=== PATIENT | female | born 1955 | race Caucasian/White ===

== ENCOUNTER → 2019-08-15 09:25 | Outpatient (CLI) | payer MEDICARE, OTHER, SELFPAY ==
--- NOTE | ~2019-08-15 | DEXA_ITS ---
Bone Density Report Name: Lyly Townsend Age: 64 Sex: Female Ethnicity: White Date of : 1955 Indication: postmenopausal osteoporosis; history of glucocorticoids; Referring Provider: NEFTALI MCWILLIAMS D.O. Study: Bone densitometry was performed. Exam Date: August 15, 2019 Accession number: [id number] Bone Density: Region BMD T-score Z-score Classification AP Spine (L1-L4) 1.004 -0.4 1.2 Normal Femoral Neck (Left) 0.536 -2.8 -1.4 Osteoporosis Total Hip (Left) 0.664 -2.3 -1.2 Osteopenia Femoral Neck (Right) 0.454 -3.6 -2.1 Osteoporosis Total Hip (Right) 0.568 -3.1 -1.9 Osteoporosis Total Hip Mean 0.616 -2.7 -1.6 Osteoporosis World Health Organization criteria for BMD impression classify patients as: Normal (T-score at or above -1.0), Osteopenia (T-score between -1.0 and -2.5), or Osteoporosis (T-score at or below -2.5). 10-year Fracture Risk: FRAX not reported because: Some T-score for Spine Total or Hip Total or Femoral Neck at or below -2.5 Previous Exams: Region Exam Age BMD T-score BMD Change BMD Change Date g/cm2 vs Baseline vs Previous AP Spine(L1-L4) 08/15/2019 64 1.004 -0.4 0.051 0.051 01/21/2015 59 0.953 -0.9 Total Hip(Left) 08/15/2019 64 0.664 -2.3 -0.015 -0.015 01/21/2015 59 0.680 -2.2 Total Hip(Right) 08/15/2019 64 0.568 -3.1 -0.058 -0.058 01/21/2015 59 0.625 -2.6 *Denotes significance at 95% confidence level, LSC for AP Spine = 0.022 g/cm2, LSC for Total Hip = 0.027 g/cm2 Clinical Information Provided by Patient: Has taken Glucocorticoids Has used the following medications: Vitamin D Patient maximum height was 62.5 Menopause Age: 53 No regular weight bearing exercise Drinks caffeinated beverages Onset of menses at age 10 Number of children 0 Impression: The patient has osteoporosis, based on the Right Femoral Neck T-score. The patient has risk factors, including: history of glucocorticoid therapy. No significant bone loss was observed. Discussion: HIGH RISK OF FRACTURE. BONE DENSITY IS UNDESIRABLY LOW AT ONE OR MORE SKELETAL SITES, CONSISTENT WITH OSTEOPOROSIS. ALSO, BONE DENSITY IS LOWER THAN EXPECTED FOR AGE AND SEX AT ONE OR MORE SKELETAL SITES; RECOMMEND A DILIGENT SEARCH FOR SECONDARY CAUSES OF BONE LOSS. This patient's lowest T-score meets the World Health Organization's (WHO) criteria for osteoporosis at one or more sites (T-score -2.5 or below).
== END ==
PROVIDERS: Visit Provider Internal Medicine
DX: M81.0 Age-related osteoporosis without current pathological fracture (principal); M85.852 Other specified disorders of bone density and structure, left thigh
CPT/HCPCS: 77080

== ENCOUNTER → 2021-01-28 15:49 | Outpatient (CLI) | payer MEDICARE, OTHER, SELFPAY ==
--- NOTE | ~2021-01-28 | MM_ITS ---
EXAMINATION: MM screening allie BI w cherelle HISTORY: Screening mammogram TECHNIQUE: Craniocaudal and mediolateral oblique 3-D tomosynthesis images were obtained and synthetic 2-D images were generated. CAD analysis was submitted and interpreted. COMPARISON: No prior mammogram is available for comparison at this institution. BREAST PARENCHYMAL COMPOSITION: There are scattered areas of fibroglandular density. FINDINGS: There is no evidence of suspicious mass, calcification, or architectural distortion to sugg est malignancy in either breast. There has been no suspicious interval change. IMPRESSION: 1. No mammographic evidence of malignancy. 2. Recommend routine screening mammography in one year. BI-RADS Category 1: Negative Reviewed, dictated and finalized at location A.
== END ==
PROVIDERS: PCP Internal Medicine; Visit Provider Internal Medicine
DX: Z12.31 Encounter for screening mammogram for malignant neoplasm of breast (principal)
CPT/HCPCS: 77063; 77067

== ENCOUNTER → 2021-02-03 14:45 | Outpatient (CLI) | payer MEDICARE, OTHER, SELFPAY ==
--- NOTE | ~2021-02-03 | XR_ITS ---
XR chest 2V DATE: 02/03/2021 15:50 INDICATION: Mastodynia TECHNIQUE: PA and lateral views COMPARISON: 12/01/2016 two-view chest FINDINGS: Status post lower cervical spine anterior surgical fusion. Diffuse osteopenia. Bilateral hyperinflation and relative flattening the diaphragm suggest COPD. No pulmonary infiltrate or consolidation, pleural effusion or pulmonary vascular congestion or pneumothorax. Normal heart size. No hilar or mediastinal enlargement. There is chronic elevation of the left hilum suggesting chronic upper lobe volume loss on the left. IMPRESSION: Bilateral hyperinflation; no interval active disease since 12/01/2016 Chronic mild left upper lobe volume loss Reviewed, dictated and finalized at location B. IMPRESSION: Bilateral hyperinflation; no interval active disease since 7 Chronic mild left upper lobe volume loss
== END ==
PROVIDERS: PCP Internal Medicine; Visit Provider Internal Medicine
DX: N64.4 Mastodynia (principal); R91.8 Other nonspecific abnormal finding of lung field
CPT/HCPCS: 71046

== ENCOUNTER 2021-03-11 11:32 | Outpatient (CLI) | payer MEDICARE, OTHER, SELFPAY ==
--- NOTE | ~2021-03-11 | MMUS_ITS ---
EXAMINATION: MM diagnostic allie LT w cherelle, US breast LT complete HISTORY: Lateral left breast pain TECHNIQUE: ML, MLO, craniocaudal full field and spot 3-D tomosynthesis images of the left breast were performed and synthetic 2-D images were generated. CAD analysis was submitted and interpreted. High resolution complete left breast and left axillary ultrasound was performed. COMPARISON: 01/28/2021, 07/20/2016 bilateral digital screening mammogram examinations BREAST PARENCHYMAL COMPOSITION: There are scattered areas of fibroglandular density. FINDINGS: MAMMOGRAPHIC FINDINGS: There is an approximately 5.5 mm circumscribed opacity in the posterior aspect of the upper outer lef t breast, likely intramammary lymph node. Another approximately 5.4 mm circumscribed probable lymph node is noted in the left axilla. No suspicious mass or architectural distortion is evident. No malignant calcification, skin thickenin g or retraction. ULTRASOUND: 6.1 x 3.8 x 4.6 millimeters lymph node is noted in the left axillary area at 2:00 10 cm from the nipp le. The cortex appears relatively uniform in thickness and echogenicity. No left breast suspicious mass or shadowing is detected. IMPRESSION: 1. No mammographic evidence of malignancy 2. Routine mammographic screening is recommended. BI-RADS Category 2: Benign finding(s). Reviewed, dictated and finalized at location A. IMPRESSION: 1. No mammographic evidence of malignancy 2. Routine mammographic screening is recommended. BI-RADS Category 2: Benign finding(s).
== END 2021-03-11 11:33 | disposition home or self-care (01) ==
PROVIDERS: PCP Internal Medicine; Visit Provider Internal Medicine
DX: R92.8 Other abnormal and inconclusive findings on diagnostic imaging of breast (principal); N64.4 Mastodynia
CPT/HCPCS: 76641; 77061; 77065; G0279

== ENCOUNTER 2021-04-04 09:08 | Outpatient (CLI) | payer MEDICARE, OTHER, SELFPAY ==
--- NOTE | 2021-04-04 09:23 | EST_ITS ---
Patient Info Name: Lyly Townsend Age: 65 years : 1955 Gender: Female Ht: 62 in Wt: 106 lbs BSA: 1.45 m2 HR: 68 bpm BP: 184 / 68 mmHg Heart Rhythm: Sinus Rhythm Exam Date: 04/04/2021 9:54 AM Exam Location: [facility] Patient Status: Outpatient Admit Date: 04/04/2021 Staff Ordering Physician: Tien Pascal DO Attending Provider: Tien Pascal DO Exercise Technologist: Tierra [place] CT Exercise Physician: Derik Melissa DO Exam Type: CA stress echo Study Info Indications R07.89 - Other chest pain Treadmill exercise stress echocardiogram is performed. Summary 1. 1. Negative Dilshad exercise stress test for ischemic ST changes by ECG criteria. 2. 2. Poor functional capacity, achieving 4 METs of workload. 3. 3. Baseline hypertension with hypertensive response to exercise. 4. 4. Appropriate HR response to exercise. 5. 5. Appropriate HR recovery at 1 minute post exercise. 6. 6. Negative stress echocardiogram for ischemia by wall motion analysis. 7. 7. Patient informed of the above results. Stress Echo Findings Left Ventricle Appropriate increase in LV endocardial thickening with systole. Appropriage augmentation of contractility with systole. No wall motion abnormality. Left Ventricle Normal LV systolic function, no wall motion abnormality. Protocol: Dilshad Stress ECG Details Stage: REST Duration (min): 31 min : 20 sec Speed (mph): 0.0 Grade (%): 0 HR (bpm): 73 SBP (mmHg): 184 DBP (mmHg): 68 METS: --- Stage: REST Duration (min): 32 min : 58 sec Speed (mph): 0.0 Grade (%): 0 HR (bpm): 73 SBP (mmHg): 184 DBP (mmHg): 68 METS: --- Stage: STAGE 1 Duration (min): 1 min : 0 sec Speed (mph): 1.7 Grade (%): 10 HR (bpm): 121 SBP (mmHg): 184 DBP (mmHg): 68 METS: --- Stage: STAGE 1 Duration (min): 2 min : 0 sec Speed (mph): 1.7 Grade (%): 10 HR (bpm): 136 SBP (mmHg): 184 DBP (mmHg): 68 METS: --- Stage: STAGE 1 Duration (min): 2 min : 32 sec Speed (mph): 0.0 Grade (%): 0 HR (bpm): 137 SBP (mmHg): 184 DBP (mmHg): 68 METS: --- Stage: RECOVERY Duration (min): 0 min : 27 sec Speed (mph): 0.0 Grade (%): 0 HR (bpm): 126 SBP (mmHg): 213 DBP (mmHg): 133 METS: --- Stage: RECOVERY Duration (min): 1 min : 27 sec Speed (mph): 0.0 Grade (%): 0 HR (bpm): 92 SBP (mmHg): 213 DBP (mmHg): 133 METS: --- Stage: RECOVERY Duration (min): 2 min : 27 sec Speed (mph): 0.0 Grade (%): 0 HR (bpm): 78 SBP (mmHg): 213 DBP (mmHg): 133 METS: --- Stage: RECOVERY Duration (min): 3 min : 13 sec Speed (mph): 0.0 Grade (%): 0 HR (bpm): 75 SBP (mmHg): 182 DBP (mmHg): 92 METS: --- Rest HR: 73 bpm Peak HR: 138 bpm Rest Sys BP: 184 mmHg Peak Sys BP: 213 mmHg Max Pred HR: 156 bpm % Max Pred HR: 88 % Target HR: 133 bpm Max RPP: 29,394 bpm*mmHg Mont[place] Oca Score: -7 BP Response: Patient exhibited a hypertensive response
== END 2021-04-04 09:09 | disposition home or self-care (01) ==
PROVIDERS: PCP Internal Medicine; Visit Provider Internal Medicine
DX: R07.9 Chest pain, unspecified (principal)
CPT/HCPCS: 93351

== ENCOUNTER → 2021-07-28 08:50 | Outpatient (CLI) | payer MEDICARE, SELFPAY ==
[2021-07-28 13:53] LABS: Influenza A QL RT-PCR Negative (Negative); Influenza B QL RT-PCR Negative (Negative); SARS-CoV-2 RNA PCR Negative
== END ==
PROVIDERS: PCP Internal Medicine; Visit Provider Internal Medicine
DX: R68.89 Other general symptoms and signs (principal); Z20.822 Contact with and (suspected) exposure to COVID-19
CPT/HCPCS: 87502; C9803; U0003; U0005

== ENCOUNTER 2021-07-28 12:04 | Outpatient (CLI) | payer MEDICARE, SELFPAY ==
[2021-07-28 12:47] LABS: Add Urine Microscopic? YES; Appearance Urine Clear (Clear); Bilirubin Urine Negative (Negative); Blood Urine Negative (Negative); Color Urine Amber (Yellow); Glucose Urine UA Negative (Negative); Ketones Urine Trace mg/dL (Negative); Leukocyte Esterase Ur Negative LEU/UL (Negative); Mucus Urine Rare /lpf; Nitrate Urine Positive (Negative); Protein Urine Negative (Negative); RBC Urine 0-2 /hpf (0-2); Specific Grav Ur 1.005 (1.001-1.035); Squamous Epithelial Cell Urine Few /hpf (Few); WBC Urine 0-3 /hpf
== END 2021-07-28 12:05 | disposition home or self-care (01) ==
PROVIDERS: PCP Internal Medicine; Visit Provider Internal Medicine
DX: R30.0 Dysuria (principal)
CPT/HCPCS: 81001; 87502; C9803; U0003; U0005

== ENCOUNTER 2021-08-12 10:03 | Outpatient (CLI) | payer MEDICARE, SELFPAY ==
--- NOTE | ~2021-08-12 | XR_ITS ---
XR chest 2V DATE: 08/12/2021 10:13 INDICATION: Intermittent fever for 6 weeks. Cough, shortness of breath. TECHNIQUE: PA and lateral views COMPARISON: 02/03/2021 2 view chest FINDINGS: Status post anterior cervical spine surgical fusion. Bilateral hyperinflation. No pulmonary infiltrate or consolidation, pleural effusion or pulmonary vas cular congestion or pneumothorax. IMPRESSION: Bilateral hyperinflation; no active cardiopulmonary disease Reviewed, dictated and finalized at location A. L POLISHER AND BUFFER APPRENTICE
[2021-08-12 10:26] LABS: CRP 2.3 mg/dL (<1.0); Lactate Dehydrogenase 421 U/L (313-618)
[2021-08-12 10:33] LABS: Rheumatoid Factor < 8.6 IU/ML (<12)
== END 2021-08-12 10:04 | disposition home or self-care (01) ==
PROVIDERS: PCP Internal Medicine; Visit Provider Internal Medicine
DX: R50.9 Fever, unspecified (principal)
CPT/HCPCS: 36415; 71046; 83615; 86140; 86430; 87086; 87088

== ENCOUNTER → 2022-02-05 11:25 | Outpatient (CLI) | payer MEDICARE, SELFPAY ==
--- NOTE | ~2022-02-05 | XR_ITS ---
XR foot LT min 3V DATE: 02/05/2022 11:51 INDICATION: Left foot pain TECHNIQUE: 4 views COMPARISON: None FINDINGS: There is diffuse osteopenia. No fracture or dislocation, periosteal reaction or bone destruction. No erosive change. IMPRESSION: Osteopenia Reviewed, dictated and finalized at location B. IMPRESSION: Osteopenia
== END ==
PROVIDERS: PCP Internal Medicine; Visit Provider Internal Medicine
DX: M85.872 Other specified disorders of bone density and structure, left ankle and foot (principal)
CPT/HCPCS: 73630

== ENCOUNTER 2023-06-21 08:47 | Outpatient (CLI) | payer MEDICARE, SELFPAY ==
--- NOTE | ~2023-06-21 | DEXA_ITS ---
Bone Density Report Name: DAXA TABOR Age: 68 Sex: Female Ethnicity: White Date of : 1955 Indication: postmenopausal; screening for osteoporosis; Referring Provider: STEPHENIE SHELDON Study: Bone densitometry was performed. Exam Date: June 21, 2023 Accession number: [id number] Bone Density: Region BMD T-score Z-score Classification AP Spine(L1-L4) 1.019 -0.3 1.7 Normal Femoral Neck (Left) 0.558 -2.6 -1.0 Osteoporosis Total Hip (Left) 0.648 -2.4 -1.1 Osteopenia Femoral Neck (Right) 0.525 -2.9 -1.3 Osteoporosis Total Hip (Right) 0.618 -2.7 -1.3 Osteoporosis Total Hip Mean 0.633 -2.6 -1.2 Osteoporosis World Health Organization criteria for BMD impression classify patients as: Normal (T-score at or above -1.0), Osteopenia (T-score between -1.0 and -2.5), or Osteoporosis (T-score at or below -2.5). 10-year Fracture Risk: FRAX not reported because: Some T-score for Spine Total or Hip Total or Femoral Neck at or below -2.5 Clinical Information Provided by Patient: Has used the following medications: Vitamin D, Calcium Patient maximum height was 62 Menopause Age: 53 No regular weight bearing exercise Does not regularly consume dairy products Drinks caffeinated beverages Onset of menses at age 9 Number of children 0 Impression: The patient has osteoporosis, based on the Right Femoral Neck T-score. Discussion: INCREASED RISK OF FRACTURE. BONE DENSITY IS UNDESIRABLY LOW AT ONE OR MORE SKELETAL SITES, CONSISTENT WITH POSTMENOPAUSAL OSTEOPOROSIS. This patient's lowest T-score meets the World Health Organization's (WHO) criteria for osteoporosis at one or more sites (T-score -2.5 or below). In untreated patients, the risk of osteoporotic fracture increases approximately two-fold for each 1.0 SD decrease in T-score. Low bone density is not the only risk factor for fracture; also consider factors such as patient's age, frailty or poor health, risk of falling, risk of injury, previous osteoporotic fracture, family history of osteoporosis, cigarette smoking, low body weight, etc. Not everyone with low bone mineral density has osteoporosis; osteomalacia and other metabolic bone disorders should also be considered. Patients who have osteoporosis should be evaluated for specific diseases and conditions (secondary causes) that may cause or contribute to bone loss. The [place] Association [employer] Clinical Endocrinologists (AACE) and National Osteoporosis Foundation (NOF) recommend pharmacologic intervention for all postmenopausal women whose T-score is in this range. The patient should follow a healthful lifestyle (good nutrition with adequate calcium and vitamin D, and appropriate weight-bearing exercise). Follow-Up: Consider a repeat BMD and Vertebral Fracture Assessment (VFA) exam in 2 years or sooner if medi
== END 2023-06-21 08:48 | disposition home or self-care (01) ==
LOC: ANHIMG 08:48
PROVIDERS: PCP Nurse Practitioner Family; Visit Provider Nurse Practitioner Family
DX: M81.0 Age-related osteoporosis without current pathological fracture (principal); Z78.0 Asymptomatic menopausal state; Z13.820 Encounter for screening for osteoporosis
CPT/HCPCS: 77080

== ENCOUNTER 2024-02-29 11:41 | Outpatient (CLI) | payer MEDICARE, SELFPAY ==
--- NOTE | ~2024-02-29 | CT_ITS ---
EXAMINATION: CT sinus wo con DATE: 02/29/2024 11:54 INDICATION: Chronic sinusitis. TECHNIQUE: Computed tomography (CT) of the paranasal sinuses was performed without intravenous contra st. Iterative reconstruction technique was employed. The dose-length product was 290.62 mGy-cm. COMPARISON: CT sinuses 11/25/2016 FINDINGS: The frontal , ethmoid, sphenoid, and maxillary sinuses are clear. There is leftward deviati on of the nasal septum. There is cedric bullosa involving left middle turbinate. The middle turbinate s are partially paradoxical. The ostiomeatal units are patent. IMPRESSION: 1. Leftward deviation of the nasal septum. Reviewed, dictated and finalized at location A.
== END 2024-02-29 11:42 ==
LOC: MICIMG 11:41
DX: J34.2 Deviated nasal septum (principal); J32.9 Chronic sinusitis, unspecified
CPT/HCPCS: 70486

== ENCOUNTER 2024-03-15 12:01 | Outpatient (CLI) | payer MEDICARE, SELFPAY ==
[2024-03-15 13:27] LABS: Influenza A QL RT-PCR Negative (Negative); Influenza B QL RT-PCR Negative (Negative); RSV RNA, RT-PCR Negative (Negative); SARS-CoV-2 RNA PCR Positive (Negative)
== END 2024-03-15 12:02 | disposition home or self-care (01) ==
LOC: ANHLAB 12:03
PROVIDERS: PCP Nurse Practitioner Family; Visit Provider Nurse Practitioner Family
DX: R50.9 Fever, unspecified (principal); Z20.822 Contact with and (suspected) exposure to COVID-19
CPT/HCPCS: 87637

== ENCOUNTER 2024-03-22 10:19 | Outpatient (CLI) | payer MEDICARE, SELFPAY ==
--- NOTE | ~2024-03-22 | XR_ITS ---
EXAMINATION: XR chest 2V DATE: 03/22/2024 10:42 INDICATION: Shortness of breath. Chest tightness. TECHNIQUE: Frontal and lateral views of the chest were obtained. COMPARISON: Chest 2 views 08/12/2021 FINDINGS: There is mild scarring at the lung apices. There is no pneumonia, pleural effusion, or pneu mothorax. There are changes of anterior fusion procedure in cervical spine. There is mild chronic ant erior wedging of multiple mid thoracic vertebral bodies. IMPRESSION: 1. Stable mild scarring at the lung apices. Reviewed, dictated and finalized at location A.
== END 2024-03-22 10:20 | disposition home or self-care (01) ==
LOC: ANHIMG 10:25
PROVIDERS: PCP Nurse Practitioner Family; Visit Provider Nurse Practitioner Family
DX: R06.02 Shortness of breath (principal)
CPT/HCPCS: 71046

== ENCOUNTER 2024-09-11 10:57 | Outpatient (CLI) | payer MEDICARE, SELFPAY ==
--- NOTE | 2024-09-11 11:09 | ECG_ITS ---
Test Date: 2024-09-11 11:20:18 Measurements Intervals [place] Rate: 57 P: 58 NC: 161 QRS: 42 QRSD: 90 T: 14 QT: 387 QTc: 377 Interpretive Statements SINUS BRADYCARDIA No previous ECG available for comparison Electronically Signed On 09-11-2024 11:54:04 CDT by Daniel Davis M.D.
--- OUTSIDE RECORDS SUMMARY | 2024-09-11 13:09 | XMS_ITS | Clinical Summary ---
Author Organization [facility] [employer] [facility] Address [address] [place] [address] Phone Care Team Providers Care Twitchell Operator Name Role Phone Paul Brooks ENVIRONMENTAL PROJECTS ADVISOR Unavailable [phone] Dilip Robledo MD Primary Care Provider [phone] Allergies Active Allergy Reactions Criticality Noted Date Comments Codeine Shortness of breath High 11/23/2017 Hydrocodone Shortness of breath High 11/23/2017 Sulfa (Sulfonamide Antibiotics) Rash Medium 10/03 Medications losartan (COZAAR) 50 mg tablet Take 1 tablet (50 mg total) by mouth daily Active omeprazole (PriLOSEC) 40 mg capsule Take 1 capsule (40 mg total) by mouth daily Active cholecalciferol (VITAMIN D-3) 5,000 unit tablet Active cyanocobalamin (Vitamin B-12) 1,000 mcg tabletIndicatio ns:Prevention of Vitamin B12 Deficiency Take 1 tablet (1,000 mcg total) by mouth daily Active diazePAM (VALIUM) 5 mg tablet TK 1/2 T PO QD PRN 0 Active needle, disp, 25 gauge (BD PrecisionGlide) 25 gauge x 1 needle USE ONE NEEDLE ONCE A WEEK WITH AVONEX INJECTION 6 each 12 0 Active albuterol HFA (PROVENTIL HFA,VENTOLIN HFA,PROAIR HFA) 90 mcg/actuation inhaler INHALE 1 PUFF BY MOUTH EVERY 6 HOURS NEEDED FOR SHORTNESS OF BREATH OR WHEEZING 3 Active zonisamide (ZONEGRAN) 25 mg capsule Take 1 capsule (25 mg total) by mouth daily 6caps per day 3 Active naproxen (ANAPROX DS) 550 mg tablet Take 1 Tablet prior to Avonex injection 30 tablet 2 4 Active gabapentin (NEURONTIN) 300 mg capsule TAKE 1 CAPSULE BY MOUTH TWICE DAILY 180 capsule 3 4 Active baclofen (LIORESAL) 10 mg tablet Take 1 tablet (10 mg total) by mouth 4 (four) times a day 360 tablet 3 4 06/20/20 25 Active interferon beta-1a (Avonex) 30 mcg/0.5 mL injection Inject 0.5 mL (30 mcg total) into the muscle as instructed every 7 days 1 kit 5 5 Active Active Problems Problem Noted Date Diagnosed Date Vitamin D deficiency 11/16/2017 Abnormal gait 07/08/2015 Multiple sclerosis 10/12/2006 Encounters Date Type Department Care Team Description 08/11/2024 Orders Only [facility] [address] [place] [phone] Mickey Turpin MD Multiple sclerosis ([facility]) (Primary Dx); Abnormal gait; Spasticity 07/25/2024 Orders Only [facility] [address] [facility] [address] [place] [address] Mickey Turpin MD Multiple sclerosis (HCC) (Primary Dx) 06/20/2024 11:00 AM [facility] Office Visit [facility] [address] [place] [phone] Mickey Turpin MD Multiple sclerosis ([facility]) (Primary Dx); High risk medication use from Last 3 Months Immunizations Immunization Administration Dates Next Due Influenza, Quadrivalent, Cristina l Culture-based MDCK, Preservative Free, Antibiotic Free, Intramuscular 04/02/2020,07/22/2017 Influenza, Quadrivalent, Rec ombinant, Egg Free, Preservative Free, Intramuscular 04/12/2018 Influenza, Quadrivalent, Spl it, Preservative Free, Intramuscular 04/13/2019 Pfizer SARS-CoV-2 Monovalent Vaccination (12+ Yrs) PURPLE 08/31/2020,08/09/2020 Pneumococcal Conjugate PCV 13 04/20/2018 ,04/19/2018,01/19/2017,01/19 Pneumococcal Polysaccharide PPV23 04/27/2019 Tetanus toxoid, adsorbed 02/24/2013,02/24/2013 ZOSTER Recombinant 01/02/2021 Surgical History Surgery Date Site/Laterality Comments CT LIG/TRNSXJ FLP TUBE ABDL/ VAG APPR UNI/BI Tubal Ligation - (Added by TW Conv) NECK SURGERY Neck Surgery - December 2007, ?C5/6 fusion (Added by TW Conv) Medical History Medical History Date Comments Personal history of other sp ecified conditions History of fatigue - (Added by TW Conv) Personal history of other di seases of the nervous system and sense organs History of optic neuri tis - (Added by TW Conv) Social History Tobacco Use Types Packs/Day Years Used Date Smoking Tobacco: Former Tobacco Cessation:Counseling Given: Not Answered Comments Unknown Sex and Gender Information Value Date Recorded Sex Assigned at Not on file Legal Sex Female 11:21 PM [facility]MAN Gender Identity Not on file Sexual Orientation Not on file Obstetrics History Last Filed Vital Signs Vital Sign Reading Time Taken Comments Blood Pressure 163/89 06/20/2024 10:52 AM BUGGYMAN Pulse 79 06/20/2024 10:52 AM BUGGYMAN Temperature 36.7 C (98 F) 01/27/2022 10:10 AM CDT Respiratory Rate - - Oxygen Saturation - - Inhaled Oxygen Concentration - - Weight 43.3 kg (95 lb 6.4 oz) 06/20/2024 10:52 A M BUGGYMAN Height 157.5 cm (5' 2 ) 06/20/2024 10:52 AM BUGGYMAN Body Mass Index 17.45 06/20/2024 10:52 AM BUGGYMAN Plan of Treatment Health Maintenance Due Date Last Done Comments Breast Cancer Screening-Mammogram 1955 Colon Cancer Screening-Colonoscopy 1955 Depression Screening 1955 Fall Risk Assessment 1955 Hepatitis C Screening 1955 Hepatitis B Screening 1974 DTaP/Tdap/Td Vaccine (1 - Tdap) 02/25/2013 3, 02/24/2013 Osteoporosis Screening-Bone Density Scan 07/05/2019 07/05/2017, 07/04/2017 Well Visit 65+ 2021 Covid-19 Vaccine (4 - 2023-2 5 season) 2024 02/20/2021, 08/31/2020, 08/09/2020 Influenza Vaccine (#1) 2024 2, 04/02/2020, 04/13/2019, Additional history exists Pneumococcal vaccine 65+ (3 of 3 - PCV20 or PCV21) 04/27/2024 04/27/2019, 04/20/2018, 04/19/2018, Additional history exists Zoster Vaccine Completed 03/17/2021, 01/02/2021 Medical Devices Implanted Type Area Mixer Operator Hot Metal Device Identifier Shelf Expiration Date Model / Serial / Lot Cervical Fusion Spine Cervical Procedures Procedure Name Priority Date/Time Associated Diagnosis Comments COMPREHENSIVE METABOLIC PANEL Routine 06/13/2024 8:19 AM [facility]MAN Multiple sclerosis (HCC) CBC WITH AUTO DIFFERENTIAL Routine 06/13/2024 8:19 AM [facility]MAN Multiple sclerosis (HCC) from Last 3 Months Results * (ABNORMAL) CBC with auto differential (06/13/2024 8:19 AM BUGGYMAN) WBC 3.9 3.4 - 10.8 x10E3/uL [facility] - 01 RBC 4.45 3.77 - 5.28 x10E6/uL [facility] - 01 Hgb 12.8 11.1 - 15.9 g/dL [facility] - 01 Hct 40.9 34.0 - 46.6 % [facility] - 01 MCV 92 79 - 97 fL [facility] - 01 MCH 28.8 26.6 - 33.0 pg [facility] - 01 MCHC 31.3(L) 31.5 - 35.7 g/dL [facility] - 01 Rdw 13.0 11.7 - 15.4 % [facility] - 01 Platelets 214 150 - 450 x10E3/uL [facility] - 01 Neutrophils pct 40 Not Estab. % [facility] - 01 Lymphs pct 45 Not Estab. % [facility] - 01 Monocytes pct 13 Not Estab. % [facility] - 01 Eosinophils pct 1 Not Estab. % [facility] - 01 Basophil pct 1 Not Estab. % [facility] - 01 Neutrophil abs 1.6 1.4 - 7.0 x10E3/uL [facility] - 01 Lymphs (Absolute) 1.7 0.7 - 3.1 x10E3/uL [facility] - 01 Monocyte abs 0.5 0.1 - 0.9 x10E3/uL [facility] - 01 Eosinophils, abs 0.0 0.0 - 0.4 x10E3/uL [facility] - 01 Basophils, abs 0.0 0.0 - 0.2 x10E3/uL [facility] - 01 Immature Granulocytes 0 Not Estab. % [facility] - 01 Immature Grans (Abs) 0.0 0.0 - 0.1 x10E3/uL [facility] - 01 Blood 06/13/2024 8:19 AM BUGGYMAN 06/13/2024 Narrative [facility] - 06/14/2024 9:09 AM BUGG[facility]MAN Performed at: [address] [id number] Oral Hygienist: Jax Siegel PhD, Phone: [phone] us Mickey Turpin MD LAB BLOOD ORDERABLES [facility] * Comprehensive metabolic panel (06/13/2024 8:19 AM BUGGYMAN) [facility] Glucose 86 70 - 99 mg/dL [facility] - 01 BUN 11 8 - 27 mg/dL [facility] - 01 Creatinine, Serum 0.63 0.57 - 1.00 mg/dL [facility] - 01 eGFR 97 >59 mL/min/1.73 [facility] - 01 BUN/creat ratio 17 12 - 28 [facility] - 01 Sodium 142 134 - 144 mmol/L [facility] - 01 Potassium, sr 4.3 3.5 - 5.2 mmol/L [facility] - 01 Chloride 105 96 - 106 mmol/L [facility] - 01 CO2 24 20 - 29 mmol/L [facility] - 01 Calcium 9.1 8.7 - 10.3 mg/dL [facility] - 01 Protein, sr 6.9 6.0 - 8.5 g/dL [facility] - 01 Albumin 4.6 3.9 - 4.9 g/dL [facility] - 01 Globulin, Total 2.3 1.5 - 4.5 g/dL [facility] - 01 Bilirubin, Total 0.4 0.0 - 1.2 mg/dL [facility] - 01 Alk phos 68 44 - 121 IU/L [facility] - 01 AST 22 0 - 40 IU/L [facility] - 01 ALT 16 0 - 32 IU/L [facility] - 01 Blood 06/13/2024 8:19 AM BU[facility]YMAN 06/13/2024 Narrative [facility] - 06/14/2024 7:10 AM BUGGYMAN Performed at: - [facility] [address] [id number] Oral Hygienist: Jax Siegel PhD, Phone: [phone] us Mickey Turpin MD LAB BLOOD ORDERABLES Final Resul t [facility] - 01 from Last 3 Months Insurance MEDICARE [facility] MEDICARE Address: [facility] [address] [place] [address] MEDICARE [facility] MEDICARE [facility] MEDIC[facility] Address: [address] [address] [place] [address] MEDICARE [facility] MED[facility] Address: [address] [address] [place] [address] Care Teams Twitchell Operator Relationship Specialty Start Date End Date Dilip Robledo MD [address] [place] [address] PCP - General Family Practice 08/15/24 Paul Brooks NP [address] [place] [address] Nurse Practitioner 08/04/23
--- OUTSIDE RECORDS SUMMARY | 2024-09-11 13:09 | XMS_ITS | Clinical Summary ---
Author Organization [facility] Y[place]le Address [address] [place] [address] Care Team Providers Care Crown Ironer Operator Name Role Phone Lm Forbes MD Primary Care Provider [phone] Source Comments [facility]ates and Associated Physician Practices is amultiple site organization consisting of ambulatory clinics and hospital sitesin [place], [place], [place] and [place]. This disclosure is being madepursuant to the Care Everywhere program and may not contain all information available regarding this patient. Last updated 18.[facility] Allergies Active Allergy Reactions Criticality Noted Date Comments Codeine Shortness of Breath,Swelling High 018 Hydrocodone Shortness of Breath,Swelling High 2017 Medications * Be aware that medications may not be up to date on this document. Alwaysverify current medications with the patient. Medication Sig Dispensed Refills Start Date End Date Status Interferon Beta-1a (AVONEX IM) Active gabapentin (NEURONTIN) 300 MG capsule Take 300 mg by mouth 3 times daily Active valACYclovir (VALTREX) 500 MG tablet Take 500 mg by mouth 2 times daily Active omeprazole (PRILOSEC) 40 MG capsule Take 40 mg by mouth daily before breakfast Active losartan - hydroCHLOROthiazide (HYZAAR) 50-12.5 MG tablet Take 1 tablet by mouth once daily Active baclofen (LIORESAL) 10 MG tablet Take 10 mg by mouth 3 times daily May cause drowsiness. Active vitamin D (CHOLECACIFEROL) 5000 UNITS capsule Take 5,000 Units by mouth once daily Active cyanocobalamin (VITAMIN B-12) 1000 MCG tablet Take 1,000 mcg by mouth once daily Active Hyaluronic Acid-Vitamin C (HYALURONIC ACID PO) Take 150 mg by mouth once daily Active Calcium Glycerophosphate (PRELIEF PO) Take by mouth 2 times daily Active Immunizations Name Administration Dates Next Due iNFLUENZA VACCINE, RECOM-JONES, QUADR. (FLUBLOCK QUADRIVALENT; 18Y+) (RIV4) 04/12/2018 Social History Tobacco Use Types Packs/Day Years Used Date Smoking Tobacco: Never Assessed Sex and Gender Information Value Date Recorded Sex Assigned at Not on file Gender Identity Not on file Sexual Orientation Not on file Last Filed Vital Signs Vital Sign Reading Time Taken Comments Blood Pressure - - Pulse - - Temperature - - Respiratory Rate - - Oxygen Saturation - - Inhaled Oxygen Concentration - - Weight 47.6 kg (105 lb) 12/24/2017 8:24 AM CDT Height 158.8 cm (5' 2.5 ) 12/24/2017 8:24 AM CDT Body Mass Index 18.9 12/24/2017 8:24 AM CDT Plan of Treatment Health Maintenance Due Date Last Done Comments BONE DENSITY TESTING 1955 COLOGUARD (AGES 45-75) - COL ON CA SCREENING 1956 COLON MONITORING 1956 COLONOSCOPY - COLON CA SCREENING 1956 CT COLONOGRAPHY - COLON CA SCREENING 1956 Colorectal Cancer Screening 1956 FIT - COLON CA SCREENING 1956 FLEX SIG - COLON CA SCREENING 1956 LIPID TESTING 1956 MAMMOGRAM 1956 MEDICARE AWV 12 MONTHS 1956 HEPATITIS C SCREENING 04/30/1974 DTAP/TDAP/TD VACCINES (1 - Tdap) 1975 PNEUMOCOCCAL VACCINE 50+ (1 of 1 - PCV) 2006 ZOSTER VACCINE (1 of 2) 2006 COVID-19 VACCINE ( - 2023-2 5 season) 2024 INFLUENZA VACCINE (#1) 2024 04/12/2018 DEPRESSION SCREENING 07/05/2024 Respiratory Syncytial Virus (RSV) Vaccine Pt: or over 60 yrs (1 - 1-dose 75+ series) 2031 HEPATITIS B VACCINE Aged Out No longe r eligible based on patient's age to complete this topic HIB VACCINE Aged Out No longer eligi ble based on patient's age to complete this topic HPV VACCINE Aged Out No longer eligi ble based on patient's age to complete this topic MENINGOCOCCAL (Group B) VACCINE Aged Out No longer eligible based on patient's age to complete this topic MENINGOCOCCAL VACCINE Aged Out No concepción lacie eligible based on patient's age to complete this topic Care Teams Crown Ironer Operator Relationship Specialty Start Date End Date Lm Forbes MD [address] [place] [address] PCP - General Internal Medicine 11/25/16
--- OUTSIDE RECORDS SUMMARY | 2024-09-11 13:09 | XMS_ITS | Encounter Summary ---
Author Organization [facility] Address [address] [place] [address] Care Team Providers Care Field Account Director Name Role Phone Lm Forbes MD Primary Care Provider [phone] Encounter Details Date Type Department Care Team (Late st Contact Info) Description 03/31/2018 Lab Requisition [facility] [address] [place] [id number] Abhinav Menendez MD [address] [place] [address] Social History Tobacco Use Types Packs/Day Years Used Date Smoking Tobacco: Never Assessed Sex and Gender Information Value Date Recorded Sex Assigned at Not on file Gender Identity Not on file Sexual Orientation Not on file documented as of this encounter Plan of Treatment Not on file documented as of this encounter Procedures Procedure Name Priority Date/Time Associated Diagnosis Comments DERMATOPATHOLOGY Routine 03/30/2018 12:0 0 AM CDT documented in this encounter Results * DERMATOPATHOLOGY (03/30/2018 12:00 AM CDT) Case Report Dermatopathology Report Case: [id number] Authorizing Provider: Abhinav Menendez MD Collected: 03/30/2018 12:00 AM Pathologist: Theresa Buenrostro MD Received: 03/31/2018 11:55 AM Specimens: A) - Skin, left med sup calf B) - Skin, left mid med calf C) - Skin, above left med malleolus D) - Skin, right med distal calf 4:56 PM T DERMATOPATHOLOGY LABORATORY Final Diagnosis Specimen A. SKIN, left med sup calf: FOLLICULAR POROKERATOSIS, CONSISTENT WITH (Q82.8) STASIS DERMATITIS (L30.8) (see microscopic description) Specimen B. 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 SKIN, above left med malleolus: BENIGN VERRUCOUS KERATOSIS (L82.1) STASIS DERMATITIS (L30.8) DERMAL FIBROSIS (L90.5) (see microscopic description) Specimen D. SKIN, right med distal calf: ACTINIC KERATOSIS (L57.0) STASIS DERMATITIS (L30.8) (see microscopic description) 4:56 PM T DERMATOPATHOLOGY LABORATORY Clinical History A-C: R/O SCC vs DSAP. D: R/O SCCIS, DSAP. 4:56 PM T DERMATOPATHOLOGY LABORATORY Gross Description Specimen A: Received is one formalin filled container labeled with the patient's name and designated left med sup calf. The specimen consists of a shave biopsy measuring [id number]. Jar 0. Specimen B: Received is one formalin filled container labeled with the patient's name and designated left mid med calf. The specimen consists of a shave biopsy measuring [id number]. Jar 0. Specimen C: Received is one formalin filled container labeled with the patient's name and designated above left med malleolus. The specimen consists of a shave biopsy measuring [id number]. Jar 0+. Specimen D: Received is one formalin filled container labeled with the patient's name and designated right med distal calf. The specimen consists of a shave biopsy measuring [id number]. Jar 0. 4:56 PM CDT DERMATOPATHOLOGY LABORATORY Microscopic Description Specimen A. SKIN, left med sup calf: The epidermis is focally spongiotic. Sections show a sparse to moderately dense lichenoid lymphohistiocytic infiltrate, a thinned epidermis with scattered dyskeratotic keratinocytes, and cornoid lamella formation, which occur above follicular openings. The dermis shows a sparse, perivascular lymphocytic infiltrate surrounding dilated, thick-walled vessels, which are increased in number. Grocott's methenamine silver (GMS) stain fails to highlight fungal elements in the available sections. Additional deeper sections were obtained and reviewed. Specimen B. SKIN, left mid med calf: The epidermis is focally spongiotic. There are scattered dyskeratotic keratinocytes and vacuolar alteration along the basal cell layer. In addition, an underlying band-like infiltrate composed mostly of lymphocytes focally obscures the dermal-epidermal junction. There is a parakeratotic plug within a follicular opening, but no discrete cornoid lamella formation. The dermis shows a sparse, perivascular lymphocytic infiltrate surrounding dilated, thick-walled vessels, which are increased in number. Grocott's methenamine silver (GMS) stain fails to highlight fungal elements in the available sections. Additional deeper sections were obtained and reviewed. COMMENT: The differential diagnosis for these histologic findings includes a lichen planus like keratosis (LPLK), a follicular porokeratosis, and less likely a variant of lichen planus. Clinicopathologic correlation is recommended. Specimen C. SKIN, above left med malleolus: The epidermis is focally spongiotic. Sections show hyperkeratosis, papillomatosis, hypergranulosis, and acanthosis. These histological findings can be seen in a verruca vulgaris or a seborrheic keratosis. The dermis shows a sparse, perivascular lymphocytic infiltrate surrounding dilated, thick-walled vessels, which are increased in number. There is associated focal dermal fibrosis. Specimen D. SKIN, right med distal calf: The epidermis is focally spongiotic. There is focal parakeratosis. Cornoid lamella are not appreciated in the available sections. The lower half of the epidermis shows disorderly maturation of keratinocytes with nuclear pleomorphism. The dermis shows a sparse, perivascular lymphocytic infiltrate surrounding dilated, thick-walled vessels, which are increased in number. Additional deeper sections were obtained and reviewed. 8 4:56 PM CDT DERMATOPATHOLOGY LABORATORY Disclaimer An external and internal positive and negative controls are appropriate for the histochemical, immunohistochemical and immunofluorescence stain(s) in this case (if any), except where stated explicitly. The performance characteristics of the stain(s) cited in this report were developed and its performance characteristic determined by the Dermatopathology Laboratory at [facility]. These tests need not be, and therefore are not, approved by the [place] Food and Drug Administration. The tests are used for clinical purposes. Billing Codes Specimen Charges Stain Charges 98428 12086 60540 22644 1 1 1 1 39201 71035 1 1 8 4:56 PM CDT DERMATOPATHOLOGY LABORATORY Embedded Images 8 4:56 PM CDT DERMATOPATHOLOGY LABORATORY Pathology/Cytology TISSUE SPECIMEN FROM SKIN / Unknown 03/30/2018 03/31/2018 11:55 AM CDT Miscellaneous samples (specimen) TISSUE SPECIMEN FROM SKIN / Unknown 03/30/2018 03/31/2018 11:55 AM CDT Miscellaneous samples (specimen) TISSUE SPECIMEN FROM SKIN / Unknown 03/30/2018 03/31/2018 11:55 AM CDT Miscellaneous samples (specimen) TISSUE SPECIMEN FROM SKIN / Unknown 03/30/2018 03/31/2018 12:07 PM CDT Abhinav Menendez MD LAB - PATHOLOGY/CYTO LOGY ORDERABLES DERMATOPATHOLOGY LABORATORY [facility] - Department of Dermatology [address] [place] [address], 5th Floor Lab [address] [phone] documented in this encounter Visit Diagnoses Not on filedocumented in this encounter Care Teams Field Account Director Relationship Specialty Start Date End Date Lm Forbes MD [address] [place] [phone] PCP - General Internal Medicine 11/25/16 documented as of this encounter
--- OUTSIDE RECORDS SUMMARY | 2024-09-11 13:09 | XMS_ITS | Referral Summary ---
Author Organization [facility] Address [address] [place] [address] Care Team Providers Care Research Interviewer Name Role Phone Lm Forbes MD Primary Care Provider [phone] [facility],non-[facility] Affiliates and Associated Physician Practices is amultiple site organization consisting of ambulatory clinics and hospital sitesin [place], [place], [place] and [place]. This disclosure is being madepursuant to the Care Everywhere program and may not contain all information available regarding this patient. Last updated 18.[facility] Knowable Allergies Active Allergy Reactions Criticality Noted Date [...] 12/24/2017 8:24 AM CDT Plan of Treatment Not on file Administered Medications Care Teams Research Interviewer Relationship Specialty Start Date End Date Lm Forbes MD [address] [place] [address] PCP - General Internal Medicine 11/25/16
--- OUTSIDE RECORDS SUMMARY | 2024-09-11 13:09 | XMS_ITS | Data Portability ---
Author Organization [facility] Main Office Address [address] [place] [address] Care Team Providers Care Director Of Quality Name Role Phone RAN HUTCHINS Primary Care Provider [phone] OLESYA ORONA Neurologist Assessment No assessment recorded. Plan of Treatment Reminders Order Date Submit Date Provider Last Modified By Organization Details Last Modified Time Details Appointments Procedure 15 2024 09:45A M Juan F Mcdermott MD Not available Not available Not available Post-Op 2024 10:00A FREEMAN Cutler Not available Not available Not available Lab None recorded. Referral None recorded. Procedures None recorded. Surgeries None recorded. Imaging CT, sinuses, w/o contrast - [employer]. PLEASE GIVE PATIENT A COPY OF DISK. THANKS! [address], [address] [place] [address], [place], [address], 03/02/2024 11:52:36 Medication Orders cefdinir 300 mg capsule 2023 024 [employer] [id number], [address], [place], [place], [phone], 06/14/2024 16:19:48 Patient TargetsNo targets recorded. Patient Instructions Encounter Date Encounter Id Patient Instructions Last Modified By Organization Details Last Modified Time 06/15/2024 [id number] the patient will undergo septoplasty with balloon. Again she understands that her chronic left facial pain is unaffected by this procedure paty Not available 06/15/2024 11:33:05 Reason for Referral None Reported. Results Created Date Observation Date Name Description Value Unit Range Abnormal Flag Note LastModifiedBy Organization Detail LastModifiedTime 03/01/20 24 02/29/2024 CT, sinus es, w/o contr ast No observ ation record ed. [email or web address] [facility] [address], [place], [address], 03/03/2024 08:27:59 03/02/2002/29/2024 CT, sinus es, w/o contr ast No observ ation record ed. [email or web address] [facility] [address], [place], [address], 03/02/2024 11:53:15 Result Notes None recorded. Problems Name Problem SNOMED Code Status Onset Date Resolution Date Notes Provider Name and Address Organization Details Recorded Time Multiple sclerosis 55304047 Completed 202302/21/2024 LENCHO Pang null, [employer] 4 09:59:29 Chronic obstructi ve pulmonary disease 82116376 Completed 202302/21/2024 LENCHO Pang null, [employer] 4 10:00:02 Chronic sinusitis 40497396 Active 2023 Alicia Ordoñez RN null, [employer] 4 11:38:32 Chronic sinusitis 44747714 Active 2023 FREEMAN Weems [address], [place], [address], [employer] 4 11:47:20 Impacted cerumen in right ear 816280361304 9103 Active 2023 FREEMAN Weems [address], [place], [address], [employer] 4 11:47:49 Deviated nasal septum 057378182 Active 2023 FREEMAN Weems [address], [place], [address], [employer] [facility] 11:48:14 Problem Notes None recorded. Procedures Surgical History Date Name Laterality Status Provider Name and Address Organization Details Recorded Time Cerumen Impaction completed FREEMAN Weems [address], [place], [address], [facility] [employer] [facility] 02/24/2024 11:47:00 operation on facial joint completed LENCHO Pang [place] [employer] [facility] [employer] [facility] 02/21/2024 09:56:36 Imaging Results Imaging Date Name Status LastModified by Organiz ation Details LastModified Time 02/29/2024 CT, sinuses, w/o contrast completed [email or web address] [facility] [address], [place], [address], 03/03/2024 08:27:59 02/29/2024 CT, sinuses, w/o contrast completed [email or web address] [facility] [address], [place], [address], 03/02/2024 11:53:15 Procedure Notes None recorded. Medical Equipment None Reported. Allergies Allergen ID Allergen Name Allergen Category Reaction Reaction Severity Criticality Documentation Date Start Date Code Code System Note Provider Name and Address Organization Details Recorded Time 85948 codeine medicatio n swelling severe high 02/21/2024 2670 RxNorm Throa t swell s and close s, head swell s. LENCHO Pang [facility] 4 09:40:38 83470 hydrocodo ne Not available swelling severe high 02/21/2024 5489 RxNorm Throa t swell s and close s, head swell s. [place]CHO [place], [place] [employer] [facility] 4 09:41:03 Medications Name Sig Start Date Stop Date Status Note LastModified by Organization Details LastModified Time losartan 50 mg tablet Take 1 tablet every day by oral route. active Not Available Not Available No t Available azithromy alex 250 mg tablet FOLLOW PACKAGE DIRECTIO NS 06/15 completed Not Available Not Available Not Available flurbipro fen 0.03 % eye drops active Not Available Not Available Not Available prednison e 20 mg tablet TAKE 2 TABLETS BY MOUTH DAILY 06/15 completed Not Available Not Available Not Available omeprazol e 40 mg capsule,d elayed release Take 1 capsule every day by oral route. active Not Available Not Available No t Available prednisol one acetate 1 % eye drops,didi pension 06/15 completed Not Available Not Available Not Available ciproflox acin 0.3 % eye drops 06/15 completed Not Available Not Available Not Available baclofen 10 mg tablet Take 1 tablet 3 times a day by oral route. active Not Available Not Available No t Available naproxen sodium 550 mg tablet TAKE 1 TABLET BY MOUTH PRIOR TO AVONEX INJECTIO N active Not Available Not Available No t Available calcipotr iene 0.005 % topical cream APPLY TOPICALL Y TO LEGS DAILY FOR 2 WEEKS active Not Available Not Available No t Available gabapenti n 300 mg capsule Take 1 capsule twice a day by oral route. active Not Available Not Available No t Available mupirocin 2 % topical ointment APPLY TO THE AFFECTED AREA TWICE DAILY OVER HEALING WOUND FOR 10 DAYS active Not Available Not Available No t Available clobetaso l 0.05 % scalp solution active Not Available Not Available Not Available cefdinir 300 mg capsule TAKE 1 CAPSULE BY MOUTH EVERY 12 HOURS FOR 7 DAYS 06/14 completed Not Available Not Available Not Available diazepam 5 mg tablet TAKE 1 TABLET BY MOUTH DAILY NEEDED FOR TREMORS active Not Available Not Available No t Available zonisamid e 25 mg capsule Take 1 capsule every day by oral route. active Not Available Not Available No t Available clobetaso l 0.05 % shampoo active Not Available Not Available Not Available Avonex Inj. once q week. active Not Available Not Available No t Available Centrum active Multivit salazar Not Available Not Available Not Available Prolia 60 mg/mL subcutane ous syringe active Not Available Not Available Not Available Paxlovid 300 mg (150 mg x 2)-100 mg tablets in a dose pack TK 2 NIRMATRE LVIR TS AND 1 RITONAVI R T TOGETHER PO TWICE DAILY 06/15 completed Not Available Not Available Not Available Vitals Date Recorded Body height Body mass index (BMI) Body weight Body temperature Provider Name and Address Organization Details Last Updated DateTime 02/24/2024 157.48 cm 17.6 kg/m2 99244.87 g 98.3 [degF] LENCHO Pang [place] [employer] [facility] 02/24/2024 11:00:21 Date Recorded Body height Body mass index (BMI) Body weight Body temperature Provider Name and Address Organization Details Last Updated DateTime 06/15/2024 157.48 cm 17.6 kg/m2 40617.59 g 98.1 [degF] Alicia Ordoñez RN [facility] [employer] [facility] 06/15/2024 11:08:27 Social History Question Answer Notes LastModified by Organizat ion Details LastModified Time Tobacco Smoking Status Former Smoker LENCHO Pang [facility] 02/21/2024 09:55:45 What Is Your Level Of Alcohol Consumption? Occasional Information not available 02/21/2024 When Did You Quit Smoking? 17+yearssinkayla nunez Information not available 02/21/2024 Sex: Unknown Functional Status None recorded. Mental Status None recorded. Family History Nothing Reported Notes:NO ENT Medical History Condition Response ENT Y LUNG DISEASE/DISORDER Y Gynecological HistoryNo gynecological history recorded. Obstetrics History GPAL:G 0 P 0 0 0 0 Past Encounters Encounter ID Performer Location Encounter Start Date Encounter Closed Date Diagnosis/Indication Diagnosis SNOMED-CT Code Diagnosis ICD10 Code Diagnosis Note [id number] FREEMAN Weems [facility] [place] [address] [place] [address] 02/24/2024 10:53:16 02/24/2024 14:17:00 Chronic sinusitis 21480536 J32.9 Impacted c erumen in right ear 3435216573 062365 H61.21 Partial cerumen removed from right canal Deviated nasal septum 12 2136993 J34.[address] results before considerin g to proceed surgically [id number] Juan F Mcdermott MD [facility] [place] [address] [employer] [address] 06/15/2024 10:46:28 06/29/2024 10:39:56 Deviated nasal septum 164513817 J34.2 Health Concerns Section Related Observation LastModified by Organization Detai ls LastModified Time None Recorded Concern Status LastModified by Organization Details LastModified Time None Recorded Advance Directives Directive None Recorded Payers Encounter Date Sequence Insurance Name Policy Number Policy Savage Covered Member ID Savage Member ID Guarantor Name 02/24/2024 1 [facility] (MEDICARE REPLACEMENT/A DVANTAGE - PPO) [id number] Lyly Townsend [id number] Lyly Townsend 06/15/2024 1 [facility] (MEDICARE REPLACEMENT/A DVANTAGE - PPO) [id number] Lyly Townsend [id number] Lyly Townsend Notes Date Note Type Note Provider Name and Address Organization Details Recorded Time 02/24/2024 text/html Patient with a p ast medical history of COPD and MS who presents to the clinic with a complaint of difficulty hearing on the right side as well as left maxillary facial pain pain with mild nasal congestion. she reports that her difficulty hearing on the right side occurred approximately a couple of months ago. She states that she followed up with her PCP who noted cerumen and was referred to ENT. She states that she had a radical TMJ surgery in 1997 and reports chronic left-sided jaw/facial pain. She notes a history with sinus infections and reports nasal congestion. States that she uses saline rinses without improvement. States that she had a fall in 2008 and had broken her nose on the left. She has a deviated septum and reports difficulty breathing out of her left nostril. She was advised by her previous ENT, now retired, to not undergo a septoplasty due to recovery time. She has not had any further imaging done since then. FREEMAN Weems [address], [place], [address], [employer] 02/24/2024 13:49:28 06/15/2024 text/html this patient had a fall following TMJ surgery and fractured her nose. She had a CT scan which demonstrated normal sinuses but a left septal deviation. She has left facial pain from the TMJ surgery which he understands will not be affected by correction of the deviated septum Juan F Mcdermott MD [address], [place], [address], [employer] 06/15/2024 11:33:23 OBGyn Episode No OBEpisode recorded.
--- OUTSIDE RECORDS SUMMARY | 2024-09-11 13:09 | XMS_ITS | Encounter Summary ---
Author Organization [facility] Address [address] [place] [address] Care Team Providers Care Audio Visual Engineer Name Role Phone Lm Forbes MD Primary Care Provider [phone] Encounter Details Date Type Department Care Team (Late st Contact Info) Description 05/24/2019 Lab Requisition [facility] Lab [address] [place] [id number] Abhinav Menendez MD [address] [place] [address] Social History Tobacco Use Types [...] Priority Date/Time Associated Diagnosis Comments DERMATOPATHOLOGY Routine 05/23/2019 12:0 0 AM BLOCK CUBER documented in this encounter Results * DERMATOPATHOLOGY (05/23/2019 12:00 AM BLOCK CUBER) Case Report Dermatopathology Report Case: [id number] Authorizing Provider: Abhinav Menendez MD Collected: 05/23/2019 12:00 AM Ordering Location: [facility] Lab Received: 05/24/2019 01:24 PM Pathologist: Rosalva Bustillo MD Specimens: A) - Skin, right lat lower leg B) - Skin, left med lower leg C) - Skin, left med pretibial leg D) - Skin, right post mid thigh 9 3:27 PM [facility] DERMATOPATHOLOGY [facility]ORAT[facility] Final Diagnosis Specimen A. SKIN, right lat lower leg: POROKERATOSIS (Q82.8) EPIDERMAL NECROSIS SUGGESTIVE OF EXCORIATION (L98.499) STASIS DERMATITIS (L30.8) Specimen B. SKIN, left med lower leg: BASAL CELL CARCINOMA, INFILTRATIVE PATTERN (C44.719) Specimen C. SKIN, left med pretibial leg: ACTINIC KERATOSIS, LICHENOID (L57.0) STASIS DERMATITIS (L30.8) Specimen D. SKIN, right post mid thigh: BASAL CELL CARCINOMA, NODULAR TYPE (C44.712) 9 3:27 PM [facility] DERMATOPATHOLOGY [facility]ORAT[facility] Clinical History A-D: R/O SCC, BCC, Johnson's. 3:27 PM [facility] DERMATOPATHOLOGY [facility]OR[facility] Gross Description Specimen A: Received is one formalin filled container labeled with the patient's name and designated right lat lower leg. The specimen consists of a shave biopsy (2 pieces) measuring [id number] & [id number]. Jar 0. Specimen B: Received is one formalin filled container labeled with the patient's name and designated left med lower leg. The specimen consists of a shave biopsy measuring [id number]. Jar 0. Specimen C: Received is one formalin filled container labeled with the patient's name and designated left med pretibial leg. The specimen consists of a shave biopsy measuring 81x2q0dz. Jar 0+. Specimen D: Received is one formalin filled container labeled with the patient's name and designated right post mid thigh. The specimen consists of a shave biopsy measuring [id number]. Jar 0. 9 3:27 PM [facility] DERMATOPATH[facility]Y [facility] Microscopic Description Specimen A. SKIN, right lat lower leg: There is a sparse to moderately dense lichenoid lymphohistiocytic infiltrate, a thinned epidermis, and cornoid lamella formation. The epidermis is focally necrotic and covered with a scale-crust. There is fibrin at the base. In addition, there is focal spongiosis. The dermis shows a sparse, perivascular lymphocytic infiltrate surrounding dilated, thick-walled vessels, which are increased in number. Grocott's methenamine silver (GMS) stain fails to highlight fungal elements in the available sections. Specimen B. SKIN, left med lower leg: Within the dermis there are nodular aggregates of basaloid cells associated with fibromyxoid stroma and epithelial-stromal clefts. At the advancing margin of the neoplasm, there are smaller angulated nests that infiltrate the dermis. Specimen C. SKIN, left med pretibial leg: There is focal parakeratosis. The lower half of the epidermis shows disorderly maturation of keratinocytes with nuclear pleomorphism. The dermis shows a band-like, chronic inflammatory infiltrate with occasional apoptotic keratinocytes and some basal vacuolar alteration. There is focal spongiosis. The dermis shows a sparse, perivascular lymphocytic infiltrate surrounding dilated, thick-walled vessels, which are increased in number. Specimen D. SKIN, right post mid thigh: Within the dermis there are aggregates of basaloid cells with a high nuclear to cytoplasmic ratio and peripheral palisading. 9 3:27 PM [facility] DERMATOPATHOLOGY [facility] Disclaimer An external and internal positive and negative controls are appropriate for the histochemical, immunohistochemical and immunofluorescence stain(s) in this case (if any), except where stated explicitly. The performance characteristics of the stain(s) cited in this report were developed and its performance characteristic determined by the Dermatopathology Laboratory at [facility], directed by Dr. Cheryl Bustillo. These tests need not be, and therefore are not, approved by the [place] Food and Drug Administration. The tests are used for clinical purposes. Billing Codes Specimen Charges Stain Charges 28798 09516 76367 40202 1 1 1 1 92683 1 9 3:27 PM [facility] Embedded Images 9 3:27 PM [facility] Pathology/Cytology TISSUE SPECIMEN FROM SKIN / Unknown 05/23/2019 05/24/2019 1:24 PM [facility] Miscellaneous samples (specimen) TISSUE SPECIMEN FROM SKIN / Unknown 05/23/2019 05/24/2019 1:24 PM [facility] Miscellaneous samples (specimen) TISSUE SPECIMEN FROM SKIN / Unknown 05/23/2019 05/24/2019 1:24 PM [facility] Miscellaneous samples (specimen) TISSUE SPECIMEN FROM SKIN / Unknown 05/23/2019 05/24/2019 1:24 PM [facility] Abhinav Menendez MD LAB - PATHOLOGY/CYTO LOGY ORDERABLES DERMATOPATHOLOGY LABORATORY [facility] - Department of Dermatology [address] [place] [address], 5th Floor Lab [address] [phone] documented in this encounter Visit Diagnoses Not on filedocumented in this encounter Care Teams Audio Visual Engineer Relationship Specialty Start Date End Date Lm Forbes MD [address] [place] [id number] PCP - General Internal Medicine 11/25/16 documented as of this encounter
--- OUTSIDE RECORDS SUMMARY | 2024-09-11 13:09 | XMS_ITS | Continuity of Care Document ---
Author Organization [facility] Address [address] [place] [address] [address] [place] [address] Phone Care Team Providers Care Manager Non Profit Name Role Phone Yulia Reveles Unavailable Unavailable Procedures Procedure Date Office/outpatient Visit, Est Eye Exam Established Pt Eye Exam & Treatment Refraction Eye Exam & Treatment Refraction Advance Directives Directive Yes / No Effective Date File Name No Information Encounters Encounter Description Practice Location Reason(s) For Visit Diagnoses Date Provider Providers Copied on Encounter Office/outpat ient Visit, Est [facility], [address] [place] [address] [address], [place], [place], [id number], tel:[phone] [facility] No Information 9-201 0 Anushka Bestn. [address], [place], [place], [facility] [place][note 2], . tel:[phone] [facility], [address] [place] [address] [address], [place], [place], [address], [place] tel:[phone] [facility] No Information 9 Anushka Miller [address], [place], [place], [facility] [place][note 2], . tel:[phone] [facility], [address] [place] [address] [address], [place], [place], [id number], tel:[phone] [facility] No Information 3-200 8 Reveles Yulia. [address] , [address], [place], [address], [place]. tel:[phone] [facility], [address], [place], [place], [id number], [place] tel:[phone] [facility] No Information 0-200 7 Anushka Bender. [address] , [address], [place], [address], [place]. tel:[phone] Family History Family Member Type Diagnosis Age At Onset No Information Payers Payer name Insurance type Covered democrat ID Ben martines(s) [facility] CI [id number] Social History Type Description Quantity Date Captured Comments Sex Female Smoking Status No Information Chief Complaint And Reason For Visit No Information Reason For Referral Reason For Referral No Information History Of Present Illness Encounter Date Complaint History Of Prese nt Illness No Information Functional Status Date Functional Assessmen t No Information Instructions Date Instruction Additional Infor mation No Information Assessments Type Assessment Date No Information Patient Care Teams Name Effective Dates (start - stop) Status Members No Information
--- OUTSIDE RECORDS SUMMARY | 2024-09-11 13:09 | XMS_ITS | Patient Health Summary ---
Author Organization [facility] Address [address] [place] [address] Care Team Providers Care Health Companion Name Role Phone Lm Forbes MD Primary Care Provider [phone] Note from [facility],non-owned Affiliates and Associated Physician Practices is amultiple site organization consisting of ambulatory clinics and hospital sitesin [place], [place], [place] and [place]. This disclosure is being madepursuant to the Care Everywhere program and may not contain all information available regarding this patient. Last updated 18.[facility] Allergies * Codeine(Shortness of Breath,Swelling) -High Criticality * Hydrocodone(Shortness of Breath,Swelling) -High Criticality Medications * Be aware that medications may not be up to date on this document. Always verify current medications with the patient. * Interferon Beta-1a (AVONEX IM) * gabapentin (NEURONTIN) 300 MG capsule Take 300 mg by mouth 3 times daily * valACYclovir (VALTREX) 500 MG tablet Take 500 mg by mouth 2 times daily * omeprazole (PRILOSEC) 40 MG capsule Take 40 mg by mouth daily before breakfast * losartan - hydroCHLOROthiazide (HYZAAR) 50-12.5 MG tablet Take 1 tablet by mouth once daily * baclofen (LIORESAL) 10 MG tablet Take 10 mg by mouth 3 times daily May cause drowsiness. * vitamin D (CHOLECACIFEROL) 5000 UNITS capsule Take 5,000 Units by mouth once daily * cyanocobalamin (VITAMIN B-12) 1000 MCG tablet Take 1,000 mcg by mouth once daily * Hyaluronic Acid-Vitamin C (HYALURONIC ACID PO) Take 150 mg by mouth once daily * Calcium Glycerophosphate (PRELIEF PO) Take by mouth 2 times daily Immunizations * iNFLUENZA VACCINE, RECOM-JONES, QUADR. (FLUBLOCK QUADRIVALENT; 18Y+) (RIV4)(Given 04/12/2018) Social History Tobacco Use Types Packs/Day Years [...] Mass Index 18.9 12/24/2017 8:24 AM CDT Procedures * DERMATOPATHOLOGY(Performed 05/23/2019) * DERMATOPATHOLOGY(Performed 03/30/2018) * BREATH HYDROGEN/METHANE TEST(Performed 12/24/2017) Performed for Small intestinal bacterial overgrowth * DERMATOPATHOLOGY(Performed 09/15/2016) * DERMATOPATHOLOGY(Performed 08/13/2016) * DERMATOPATHOLOGY(Performed 02/19/2016) * DERMATOPATHOLOGY(Performed 09/24/2015) * DERMATOPATHOLOGY(Performed 08/08/2015) * DERMATOPATHOLOGY(Performed 08/08/2015) * DERMATOPATHOLOGY(Performed 11/29/2014) Results * DERMATOPATHOLOGY (05/23/2019 12:00 AM SHOTGUN SHELL ASSEMBLY MACHINE ADJUSTER) Only the most recent of9 resultswithin the time period is included. Case Report Dermatopathology Report Case: [id number] Authorizing Provider: Abhinav Menendez MD Collected: 05/23/2019 12:00 AM Ordering Location: [facility] DermPath Lab Received: 05/24/2019 01:24 PM Pathologist: Rosalva Bustillo MD Specimens: A) - Skin, right lat lower leg B) - Skin, left med lower leg C) - Skin, left med pretibial leg D) - Skin, right post mid thigh 9 3:27 PM [facility] [facility] [facility]SEM[employer] MACHINE ADJUSTER DERMATOPATHOLOGY LABORATORY Final Diagnosis Specimen A. SKIN, right lat lower leg: POROKERATOSIS (Q82.8) EPIDERMAL NECROSIS SUGGESTIVE OF EXCORIATION (L98.499) STASIS DERMATITIS (L30.8) Specimen B. SKIN, left med lower leg: BASAL CELL CARCINOMA, INFILTRATIVE PATTERN (C44.719) Specimen C. SKIN, left med pretibial leg: ACTINIC KERATOSIS, LICHENOID (L57.0) STASIS DERMATITIS (L30.8) Specimen D. SKIN, right post mid thigh: BASAL CELL CARCINOMA, NODULAR TYPE (C44.712) 3:27 PM [facility] DERMATOPATHOLOGY LABORATORY Clinical History A-D: R/O SCC, BCC, Johnson's. 3:27 PM [facility] DERMATOPATHOLOGY LABORATORY Gross Description Specimen A: Received is one formalin filled container labeled with the patient's name and designated right lat lower leg. The specimen consists of a shave biopsy (2 pieces) measuring [id number] & 0h6m4pc. Jar 0. Specimen B: Received is one formalin filled container labeled with the patient's name and designated left med lower leg. The specimen consists of a shave biopsy measuring [id number]. Jar 0. Specimen C: Received is one formalin filled container labeled with the patient's name and designated left med pretibial leg. The specimen consists of a shave biopsy measuring 88m6f4pb. Jar 0+. Specimen D: Received is one formalin filled container labeled with the patient's name and designated right post mid thigh. The specimen consists of a shave biopsy measuring [id number]. Jar 0. 3:27 PM [facility] DERMATOPATHOLOGY LABORATORY Microscopic Description Specimen A. SKIN, [...] ratio and peripheral palisading. 9 3:27 PM SHOTGUN SHELL ASSEMBLY MACHINE ADJUSTER DERMATOPATHOLOGY LABORATORY Disclaimer An external and internal positive and negative controls are appropriate for the histochemical, immunohistochemical and immunofluorescence stain(s) in this case (if any), except where stated explicitly. The performance characteristics of the stain(s) cited in this report were developed and its performance characteristic determined by the Dermatopathology Laboratory at [facility], directed by Dr. Cheryl Bustillo. These tests need not be, and therefore are not, approved by the [place] Food and Drug Administration. The tests are used for clinical purposes. Billing Codes Specimen Charges Stain Charges 77165 09583 73671 84533 1 1 1 1 79876 1 9 3:27 PM SHOTGUN SHELL ASSEMBLY MACHINE ADJUSTER DERMATOPATHOLOGY LABORATORY Embedded Images 9 3:27 PM [employer] SHELL ASSEMBLY MACHINE ADJUSTER DERMATOPATHOLOGY LABORATORY Pathology/Cytology TISSUE SPECIMEN FROM SKIN / Unknown 05/23/2019 05/24/2019 1:24 PM SHOTGUN SHELL ASSEMBLY MACHINE ADJUSTER Miscellaneous samples (specimen) TISSUE SPECIMEN FROM SKIN / Unknown 05/23/2019 05/24/2019 1:24 PM SHOTGUN SHELL ASSEMBLY MACHINE ADJUSTER Miscellaneous samples (specimen) TISSUE SPECIMEN FROM SKIN / Unknown 05/23/2019 05/24/2019 1:24 PM SHOTGUN SHELL ASSEMBLY MACHINE ADJUSTER Miscellaneous samples (specimen) TISSUE SPECIMEN FROM SKIN / Unknown 05/23/2019 05/24/2019 1:24 PM SHOTGUN SHELL ASSEMBLY MACHINE ADJUSTER Abhinav Menendez MD LAB - PATHOLOGY/CYTO LOGY ORDERABLES DERMATOPATHOLOGY LABORATORY [facility] - Department of Dermatology [address] [place] [address], 5th Floor Lab [address] [phone] Care Teams Health Companion Relationship Specialty Start Date End Date Lm Forbes MD [address] [place] [address] PCP - General Internal Medicine 11/25/16
--- OUTSIDE RECORDS SUMMARY | 2024-09-11 13:09 | XMS_ITS | Referral Summary ---
Author Organization [facility] Address [address] [place] [address] Phone Care Team Providers Care Wharf Hand Name Role Phone Paul Brooks PAINTING WORKER Unavailable [phone] Dilip Robledo MD Primary Care Provider [phone] Encounters Date Type Department Care Team Description 08/11/2024 Orders Only [facility] Multiple Sclerosis [address] [place] [phone] Mickey Turpin MD Multiple sclerosis ([facility]) (Primary Dx); Abnormal gait; Spasticity 07/25/2024 Orders Only [facility] Multiple Sclerosis [address] [facility] 7th [place] [address] Mickey Turpin MD Multiple sclerosis ([facility]) (Primary Dx) 06/20/2024 11:00 AM JOB PLACEMENT OFFICER Office Visit [facility] Multiple Sclerosis [address] [place] [phone] Mickey Turpin MD Multiple sclerosis ([facility]) (Primary Dx); High risk medication use from Last 3 Months Allergies Active Allergy Reactions Criticality Noted Date [...] Active diazePAM (VALIUM) 5 mg tablet TK / T PO QD PRN 0 Active needle, [...] 11/16/2017 Abnormal gait 07/08/2015 Multiple sclerosis 10/12/2006 Immunizations Immunization Administration Dates Next Due Influenza, Quadrivalent, Cristina l Culture-based MDCK, Preservative Free, Antibiotic Free, Intramuscular 04/02/2020,07/22/2017 Influenza, Quadrivalent, Rec ombinant, Egg Free, Preservative Free, Intramuscular 04/12/2018 Influenza, Quadrivalent, Spl it, Preservative Free, Intramuscular 04/13/2019 [facility] SARS-CoV-2 Monovalent Vaccination (12+ Yrs) PURPLE 08/31/2020,08/09/2020 Pneumococcal Conjugate PCV 13 04/20/2018 ,04/19/2018,01/19/2017,01/19 Pneumococcal Polysaccharide PPV23 04/27/2019 Tetanus toxoid, adsorbed 02/24/2013,02/24/2013 ZOSTER Recombinant 01/02/2021 Social History Tobacco Use Types Packs/Day Years Used Date Smoking Tobacco: Former Tobacco Cessation:Counseling Given: Not Answered Comments Unknown Sex and Gender Information Value Date Recorded Sex Assigned at Not on file Legal Sex Female 11:21 PM JOB PLACEMENT OFFICER Gender Identity Not on file Sexual Orientation Not on file Last Filed Vital Signs Vital Sign Reading Time Taken Comments Blood Pressure 163/89 06/20/2024 10:52 AM JOB PLACEMENT OFFICER Pulse 79 06/20/2024 10:52 AM JOB PLACEMENT OFFICER Temperature 36.7 C (98 F) 01/27/2022 10:10 AM CDT Respiratory Rate - - Oxygen Saturation - - Inhaled Oxygen Concentration - - Weight 43.3 kg (95 lb 6.4 oz) 06/20/2024 10:52 A M JOB PLACEMENT OFFICER Height 157.5 cm (5' 2 ) 06/20/2024 10:52 AM JOB PLACEMENT OFFICER Body Mass Index 17.45 06/20/2024 10:52 AM JOB PLACEMENT OFFICER Plan of Treatment Not on file Medical Devices Implanted Type Area Plate Shear Operator Device Identifier Shelf Expiration Date Model / Serial / Lot Cervical Fusion Spine Cervical Procedures Procedure Name Priority Date/Time Associated Diagnosis Comments COMPREHENSIVE METABOLIC PANEL Routine 06/13/2024 8:19 AM JOB PLACEMENT OFFICER Multiple sclerosis (HCC) CBC WITH AUTO DIFFERENTIAL Routine 06/13/2024 8:19 AM JOB PLACEMENT OFFICER Multiple sclerosis (HCC) from Last 3 Months Results * (ABNORMAL) CBC with auto differential (06/13/2024 8:19 AM JOB PLACEMENT OFFICER) WBC 3.9 3.4 - 10.8 x10E3/uL [facility] [...] [facility] - 01 Blood 06/13/2024 8:19 AM JOB PLACEMENT OFFICER 06/13/2024 Narrative [facility] - 06/14/2024 9:09 AM JOB PLACEMENT OFFICER Performed at: - [facility] [id number] Ceramic Saw Tender: Jax Siegel PhD, Phone: [phone] us Miceky Turpin MD LAB BLOOD ORDERABLES Final Resul t [facility] - * Comprehensive metabolic panel (06/13/2024 8:19 AM JOB PLACEMENT OFFICER) [facility] Glucose 86 70 - 99 mg/dL [facility] [...] [facility] - 01 Blood 06/13/2024 8:19 AM JOB PLACEMENT OFFICER 06/13/2024 Narrative [facility] - 06/14/2024 7:10 AM JOB PLACEMENT OFFICER Performed at: 01 - [facility] [place] [id number] Ceramic Saw Tender: Jax Siegel PhD, Phone: [phone] us Mickey Turpin MD LAB BLOOD ORDERABLES Final Resul t [facility] - 01 from Last 3 Months Insurance MEDICARE SOLUTIONS MEDICARE [facility] MEDICARE SOLUTIONS MEDICARE SOLUTIONS Care Teams Wharf Hand Relationship Specialty Start Date End Date Dilip Robledo MD [address] [place] [address] PCP - General Family Practice 08/15/24 Paul Brooks NP [address] [place] [address] Nurse Practitioner 08/04/23
== END 2024-09-11 10:58 | disposition home or self-care (01) ==
LOC: ANHCARD 11:00
PROVIDERS: PCP Nurse Practitioner Family; Visit Provider Nurse Anesthetist, Certified Registered
DX: Z01.818 Encounter for other preprocedural examination (principal)
CPT/HCPCS: 93005

== ENCOUNTER 2024-12-18 14:08 | Outpatient (CLI) | payer MEDICARE, SELFPAY ==
--- NOTE | ~2024-12-18 | NM_ITS ---
EXAMINATION: NM thyroid scan w uptake DATE: 12/19/2024 14:41 INDICATION: Other specified abnormal findings of blood chemistry. COMPARISON: None. TECHNIQUE: 344 microcuries I-123 was administered orally in capsule form. Scintigraphic images of th e thyroid gland were obtained at 24 hours. Thyroid uptake was calculated by the technologist. FINDINGS: The thyroid uptake is 12.2% (normal 10-30%), with the right lobe measuring 6.3% uptake and the left 6 .2%. There is no focal area of decreased or increased activity to suggest hypofunctioning or hyperfun ctioning nodule. IMPRESSION: 1. Normal thyroid scintigraphy and 24-hour iodine uptake. Reviewed, dictated and finalized at location B.
--- OUTSIDE RECORDS SUMMARY | 2024-12-18 15:19 | XMS_ITS | Data Portability ---
Author Organization [place] - [facility] [employer], [employer] [facility] Address [address] [place] [address] Care Team Providers Care Sanitarian Aide Name Role Phone ISIS MONTOYA Referring Provider FOREST MONTOYA Referring Provider MORA MORALES OTHER Assessment Encounter Date Assessment Date Assessment LastModified by Organization Details LastModified Time 07/03/2014 07/03/[address] morales -- variable blood pressures. ? source. check and send me readings. check kidneys with imaging. ? BETTY. [email or web address] Not available 07/05/2014 21:15:54 10/03/2014 10/03/2014 moving - soon. never went for mammogram and dexa scan -- needs. [email or web address] Not available 10/03/2014 13:50:54 12/12/2018 12/12/2018 -here to reestablish care for chronic complaints will not be doing physicals in [place] -Continue exercise routine as discussed. Making sure that you are getting at least 90 minutes of cardiovascular exercise a week and 90 minutes of weight bearing (e.g. walking or jogging) exercise a week. Continue diet as discussed, making sure that you are getting the appropriate balance of protein, carbs, dairy, vegetables, fruits, fats and 5-8 glasses of H2O a day. Avoid eating/drinking excessive amounts of processed sugar and trans fats. -Change your eating habits. It s best to eat several small meals instead of two or three large meals. After you eat, wait 2 to 3 hours before you lie down. Chocolate, mint, and alcohol can make GERD worse. Spicy foods, foods that have a lot of acid (like tomatoes and oranges), and coffee can make GERD symptoms worse in some people. If your symptoms are worse after you eat a certain food, you may want to stop eating that food to see if your symptoms get better. Do not smoke or chew tobacco. Smoking can make GERD worse. If you need help quitting, talk to your doctor about stop-smoking programs and medicines. These can increase your chances of quitting for good. If you have GERD symptoms at night, raise the head of your bed 6 to 8 inches by putting the frame on blocks or placing a foam wedge under the head of your mattress. (Adding extra pillows does not work.) Do not wear tight clothing around your middle. Lose weight if you need to. Losing just 5 to 10 pounds can help. -recently seen at [facility] for fever dx with uti and sinusitis -done with the flonase doxy and macrobid -overall feeling improved will repeat urine to ensure infection is resolved. -OK to take otc flonase of allergy symptoms. -continue to pudh po hydration to prevent repeat uti. -Take medication as directed and keep medications secured out of reach from children. Return to office if symptoms do not improve or they get worse. [email or web address] Not available 12/12/2018 12:44:19 Plan of Treatment Reminders Order Date Submit Date Provider Last Modified By Organization Details Last Modified Time Details Appointments None recorded. Lab urinalysis, complete 2018 019 [email or web address] [facility], [address] [place], [address], 9 07:42:06 thyroid stimulating hormone (TSH) [address] [facility], [address] [place], [address], 5 18:27:11 T4 free [address] [facility], [address] [place], [address], 5 18:27:10 T3 free 2014 015 [facility], [address], [place], [address], 5 18:27:16 lipid panel direct LDL [address] [facility], [address], [place], [address], 5 19:12:26 CBC 2014 015 [facility], [address], [place], [address], 5 18:12:32 [facility]inalysis [facility] 2014 [facility], [address], [place], [address], 5 13:50:54 culture, urine 2014 015 [facility], [address], [place], [address], 5 05:02:00 vitamin B12 2014 015 [facility], [address], [place], [address], 5 18:27:13 comprehensi ve metabolic panel [email or web address] [facility], [address], [place], [address], 5 19:12:23 urinalysis complete 2014 015 [facility], [address], [place], [address], 5 05:01:59 vitamin D,25-hydrox y,lc/ms/ms [address] [facility], [address], [place], [address], 5 18:27:14 rapid flu 2013 014 [email or web address] In-Office Order, Internal Use Only DO Not Attach Compendium DO Not Attach Compendium, Do Not Delete/merge, [id number] 4 15:45:[address] [facility], [address], [place], [address], 4 00:03:20 comprehensi ve metabolic panel [address] [facility], [address] [place], [address], 4 00:03:19 Referral None recorded. Procedures None recorded. Surgeries None recorded. Imaging ultrasound, abdominal - [id number] U/S Abdomen Complete [address] [facility], [facility], All Locations, [place], [address], 5 15:23:56 Medication Orders losartan 50 mg tablet 2014 015 [email or web address] None - (RX's Sent By Mail Only), 9 11:05:21 omeprazole 40 mg capsule,del ayed release 2014 015 None - (RX's Sent By Mail Only), 5 14:40:20 valacyclovi r 500 mg tablet 2014 015 [email or web address] None - (RX's Sent By Mail Only), 9 11:05:45 amoxicillin 500 mg capsule 2013 014 [id number], [address], [id number], 5 13:32:04 losartan 50 mg tablet 2013 014 [email or web address] [facility][id number], [address], [place], [id number], 9 11:05:21 Patient TargetsNo targets recorded. Patient Instructions Encounter Date Encounter Id Patient Instructions Last Modified By Organization Details Last Modified Time 05/30/2014 [id number] Blood pressure log ZONIA Not availa ble 05/31/2014 04:00:46 Bring in BP log. We will call with lab results. Use, dose, and adverse side effects of medication discussed. Call with concerns. Patient understands instructions and will seek medical attention if symptoms worsen as directed. [email or web address] Not available 05/30/2014 10:06:11 06/20/2014 [id number] Keep F/U appt. a s planned. Use, dose, and adverse side effects of medication discussed. Call with concerns. Patient understands instructions and will seek medical attention if symptoms worsen as directed. [email or web address] Not available 06/20/2014 15:45:00 10/03/2014 [id number] Urinary Tract Infection (UTI) in Women: Care Instructions ZONIA Not available 10/04/2014 04:02:35 pernicious anemi a: care instructions ZONIA Not available 10/04/2014 04:01:18 osteoporosis: ca re instructions ZONIA Not available 10/04/2014 04:01:18 12/12/2018 [id number] -Follow the treatment plan that we discussed during your visit. -Please go to the nearest ED if you develop any acute medical emergencies such as: chest pain, SOB, severe abd pain, uncontrolled bleeding, severe/intractable pain or any neurological changes. Not available 12/12/2018 11:23:52 -Patient instructed to call the office with any healthcare/medicat ion concerns or questions. -Patient verbalized understanding of treatment plan and agreed to call or RTO with any questions or if they feel that the plan needs to be modified. -Use, dosage, and adverse side effects of medications discussed. [email or web address] Not available 12/12/2018 11:23:48 Reason for Referral None Reported. Results Created Date Observation Date Name Description Value Unit Range Abnormal Flag Note LastModifiedBy Organization Detail LastModifiedTime 06/20/20 14 06/20/2014 rapid flu Influenza Type A negati ve Not Available In-Office Order Internal Use Only DO Not Attach Compendium DO Not Attach Compendium, Do Not Delete/merge, [id number] 06/20/2014 15:41:51 06/20/20 14 06/20/2014 rapid flu Influenza Type B negati ve Not Available In-Office Order Internal Use Only DO Not Attach Compendium DO Not Attach Compendium, Do Not Delete/merge, [id number] 06/20/2014 15:41:51 05/30/20 14 06/01/2014 compr ehens serge metab olic panel albumin 4.7 g/dL 3.6-5. 1 Not Available [facility] [address], [address], 06/02/2014 00:03:18 05/30/20 14 06/01/2014 compr ehens serge metab olic panel alkaline phosphatase 91 U/L 33-130 Not Available [facility] [address] [facility] [address] [place], [address], 06/02/2014 00:03:18 05/30/20 14 06/01/2014 compr ehens serge metab olic panel ALT 16 U/L 6-29 Not Available [facility] [address] [facility] [address] [place], [address], 06/02/2014 00:03:18 05/30/20 14 06/01/2014 compr ehens serge metab olic panel AST 16 U/L 10-35 Not Available [facility] [address] [facility] [address] [place], [address], 06/02/2014 00:03:18 05/30/20 14 06/01/2014 compr ehens serge metab olic panel glucose 89 mg/dL 65-99 Fasti ng refer ence inter kirill Not Available [facility] [address] [place], [address], 06/02/2014 00:03:18 05/30/20 14 06/01/2014 compr ehens serge metab olic panel urea nitrogen (BUN) 17 mg/dL 7-25 Not Available [facility] [address] [place], [address], 06/02/2014 00:03:18 05/30/20 14 06/01/2014 compr ehens serge metab olic panel creatinine 0.68 mg/dL 0.50-1 .05 For patie nts >49 years of age, the refer ence limit for Creat inine is appro ximat iris 13% highe r for peopl e ident ified as Afric an-Am maria eugenia n. Not Available [facility] [address] [place], [address], 06/02/2014 00:03:18 05/30/20 14 06/01/2014 compr ehens serge metab olic panel eGFR non-afr. kyrgyz 96 mL/mi n/1.7 3m2 > or = 60 Not Available [facility] [address] [place], [address], 06/02/2014 00:03:18 05/30/20 14 06/01/2014 compr ehens serge metab olic panel eGFR 112 mL/mi n/1.7 3m2 > or = 60 Not Available [facility] [address] [place], [address], 06/02/2014 00:03:18 05/30/20 14 06/01/2014 compr ehens serge metab olic panel BUN/creatini ne ratio NOT APPLIC ABLE (calc ) 6-22 Not Available [facility] [address] [place], [address], 06/02/2014 00:03:18 05/30/20 14 06/01/2014 compr ehens serge metab olic panel sodium 141 mmol/ L 135-14 6 Not Available [facility] [address], [place], [address], 06/02/2014 00:03:18 05/30/20 14 06/01/2014 compr ehens serge metab olic panel potassium 4.6 mmol/ L 3.5-5. 3 Not Available [facility] [address], [place], [address], 06/02/2014 00:03:18 05/30/20 14 06/01/2014 compr ehens serge metab olic panel chloride 104 mmol/ L 98-110 Not Available [facility], [place], [address], 06/02/2014 00:03:18 05/30/20 14 06/01/2014 compr ehens serge metab olic panel carbon dioxide 20 mmol/ L 19-30 Not Available [facility] [facility] [address], [place], [address], 06/02/2014 00:03:18 05/30/20 14 06/01/2014 compr ehens serge metab olic panel calcium 9.7 mg/dL 8.6-10 .4 Not Available [facility] [address], [place], [address], 06/02/2014 00:03:18 05/30/20 14 06/01/2014 compr ehens serge metab olic panel bilirubin, total 0.4 mg/dL 0.2-1. 2 Not Available [facility] [address] [place], [address], 06/02/2014 00:03:18 05/30/20 14 06/01/2014 compr ehens serge metab olic panel protein, total 7.4 g/dL 6.1-8. 1 Not Available [facility] [facility] [facility] [address], [place], [address], 06/02/2014 00:03:18 05/30/20 14 06/01/2014 compr ehens serge metab olic panel globulin 2.7 g/dL_ (calc ) 1.9-3. 7 Not Available [facility] [facility] [facility] [address], [place], [address], 06/02/2014 00:03:18 05/30/20 14 06/01/2014 compr ehens serge metab olic panel albumin/glob ulin ratio 1.7 (calc ) 1.0-2. 5 Not Available [facility] [address] [place] [address] [address] [place], [address], 06/02/2014 00:03:18 05/30/20 14 06/01/2014 CBC white blood cell count 7.3 thous and/u L 3.8-10 .8 Not Available [facility] [address] [place] [address] [address], [place], [address], 06/02/2014 00:03:20 05/30/20 14 06/01/2014 CBC red blood cell count 4.61 terri on/uL 3.80-5 .10 Not Available [facility] [address] [place] [address] [address] [place], [address], 06/02/2014 00:03:20 05/30/20 14 06/01/2014 CBC hemoglobin 13.1 g/dL 11.7-1 5.5 Not Available [facility] [address] [place], [place] [address], [place], [address], 06/02/2014 00:03:20 05/30/20 14 06/01/2014 CBC hematocrit 39.4 % 35.0-4 5.0 Not Available [facility] [address], [place], [address], 06/02/2014 00:03:20 05/30/20 14 06/01/2014 CBC MCV 85.6 fL 80.0-1 00.0 Not Available [facility] [facility] [address], [place], [address], 06/02/2014 00:03:20 05/30/20 14 06/01/2014 CBC MCH 28.5 pg 27.0-3 3.0 Not Available [facility] [address], [place], [address], 06/02/2014 00:03:20 05/30/20 14 06/01/2014 CBC MCHC 33.3 g/dL 32.0-3 6.0 Not Available [facility] [address] [place], [place] [address]y [address], [place], [address], 06/02/2014 00:03:20 05/30/20 14 06/01/2014 CBC RDW 16.5 % 11.0-1 5.0 high Not Available [facility] [facility] [address], [place], [address], 06/02/2014 00:03:20 05/30/20 14 06/01/2014 CBC platelet count 296 thous and/u L 140-40 0 Not Available [facility] [facility] [address], [place], [address], 06/02/2014 00:03:20 05/30/20 14 06/01/2014 CBC absolute neutrophils 4212 cells /uL 1500-7 800 Not Available [facility] [address], [place], [address], 06/02/2014 00:03:20 05/30/20 14 06/01/2014 CBC absolute lymphocytes 2511 cells /uL 850-39 00 Not Available [facility] [address] [place], [address], 06/02/2014 00:03:20 05/30/20 14 06/01/2014 CBC absolute monocytes 431 cells /uL 200-95 0 Not Available [facility] [address] [place], [address], 06/02/2014 00:03:20 05/30/20 14 06/01/2014 CBC absolute eosinophils 124 cells /uL 15-500 Not Available [facility] [address] [place], [address], 06/02/2014 00:03:20 05/30/20 14 06/01/2014 CBC absolute basophils 22 cells /uL 0-200 Not Available [facility] [address] [place], [address], 06/02/2014 00:03:20 05/30/20 14 06/01/2014 CBC neutrophils 57.7 % Not Avai lable [facility] [address] [place], [address], 06/02/2014 00:03:20 05/30/20 14 06/01/2014 CBC lymphocytes 34.4 % Not Avai lable [facility] [address] [place], [address], 06/02/2014 00:03:20 05/30/20 14 06/01/2014 CBC monocytes 5.9 % Not Availa ble [facility] [address] [place], [address], 06/02/2014 00:03:20 05/30/20 14 06/01/2014 CBC eosinophils 1.7 % Not Avai lable [facility] [address] [place], [address], 06/02/2014 00:03:20 05/30/20 14 06/01/2014 CBC basophils 0.3 % Not Availa ble [facility], [place], [address], 06/02/2014 00:03:20 05/30/20 14 05/30/2014 venip unctu re 1 venipuncture CHARGE Not Available [facility] [address] [place] [address] [address], [place], [address], 05/30/2014 10:27:09 10/09/19 15 10/08/2014 CBC WBC 3.9 x10^3 /uL 4.4-11 .0 low Not Available [facility] [address] [place], [place] [address] [place], [address], 10/08/2014 18:12:32 10/09/19 15 10/08/2014 CBC RBC 4.21 x10^6 /uL 4.50-5 .10 low Not Available [facility] [address] [place], [place] [address]y [address] [place], [address], 10/08/2014 18:12:32 10/09/19 15 10/08/2014 CBC HGB 12.4 g/dL 12.3-1 5.3 Not Available [facility] [address] [place], [place] [address] [address] [place], [address], 10/08/2014 18:12:32 10/09/19 15 10/08/2014 CBC HCT 37.3 % 35.9-4 4.6 Not Available [facility] [place], [address], 10/08/2014 18:12:32 10/09/19 15 10/08/2014 CBC MCV 88.6 fL 80.0-9 6.0 Not Available [facility] [address] [place], [place] [address], [place], [address], 10/08/2014 18:12:32 10/09/19 15 10/08/2014 CBC MCH 29.6 pg 27.5-3 3.2 Not Available [facility], [place], [address], 10/08/2014 18:12:32 10/09/19 15 10/08/2014 CBC MCHC 33.4 g/dL 33.4-3 5.5 Not Available [facility] [place], [address], 10/08/2014 18:12:32 10/09/19 15 10/08/2014 CBC RDW 13.1 % 11.6-1 3.7 Not Available [facility] [address] [place], [address], 10/08/2014 18:12:32 10/09/19 15 10/08/2014 CBC plt 216 x10^3 /uL 150-45 0 Not Available [facility], [place], [address], 10/08/2014 18:12:32 10/09/19 15 10/08/2014 CBC MPV 7.6 fL 7.4-10 .4 Not Available [facility], [place], [address], 10/08/2014 18:12:32 10/09/19 15 10/08/2014 CBC neut # 1.4 x10^3 /uL 1.5-7. 2 low Not Available [facility], [place], [address], 10/08/2014 18:12:32 10/09/19 15 10/08/2014 CBC lymph# 2.0 x10^3 /uL 0.7-4. 9 Not Available [facility] [address], [place], [address], 10/08/2014 18:12:32 10/09/19 15 10/08/2014 CBC mono# 0.3 x10^3 /uL 0.1-0. 9 Not Available [facility] [address], [place], [address], 10/08/2014 18:12:32 10/09/1910/08/2014 CBC eos # 0.1 x10^3 /uL 0.0-0. 4 Not Available [facility] [address], [place], [address], 10/08/2014 18:12:32 10/09/1910/08/2014 CBC baso # 0.0 x10^3 /uL 0.0-0. 2 Not Available [facility], [place], [address], 10/08/2014 18:12:32 10/09/1910/08/2014 CBC neut % 37.0 % 42.2-7 5.2 low Not Available [facility] [place], [address], 10/08/2014 18:12:32 10/09/1910/08/2014 CBC mono% 8.4 % 1.7-9. 3 Not Available [facility] [address], [place], [address], 10/08/2014 18:12:32 10/09/1910/08/2014 CBC eos% 2.1 % 1.0-6. 0 Not Available [facility] [address], [place], [address], 10/08/2014 18:12:32 10/09/19 15 10/08/2014 CBC baso% 0.8 % 0.0-4. 0 Not Available [facility] [address], [address], 10/08/2014 18:12:32 10/09/19 15 10/08/2014 CBC lymph % 51.7 % 20.5-5 1.1 high Not Available [facility] [address] [place] [address], [address], 10/08/2014 18:12:32 10/09/19 15 10/08/2014 T4 free FT4 (free thyroxine) 1.17 NG/dL 0.82-1 .74 Not Available [facility] [address] [place] [address], [address], 10/08/2014 18:27:10 10/09/19 15 10/08/2014 thyro id stimu latin g hormo ne (TSH) TSH 0.463 mIU/m L 0.500- 5.000 low Not Available [facility] [address] [place] [address], [address], 10/08/2014 18:27:11 10/09/19 15 10/08/2014 vitam in B12 vitamin B-12 2000 pg/mL 211-94 6 high ABOVE ASSAY RANGE . Not Available [facility] [address] [place] [address], [address], 10/08/2014 18:27:13 10/09/19 15 10/08/2014 vitam in D,25- hydro xy,lc /ms/m s vitamin D 37.19 NG/mL 30.00- 60.00 Not Available [facility] [address] [place] [address], [address], 10/08/2014 18:27:14 10/09/19 15 10/08/2014 T3 free T3, free 2.90 pg/mL 2.00-4 .40 Not Available [facility] [address] [place], [place] [address] [address] [place], [address], 10/08/2014 18:27:16 10/09/19 15 10/08/2014 compr ehens serge metab olic panel sodium 137 mmol/ L 135-14 5 Not Available [facility] [address] [place] [address] [address] [place], [address], 10/08/2014 19:12:23 10/09/19 15 10/08/2014 compr ehens serge metab olic panel potassium 4.2 mmol/ L 3.6-5. 1 Not Available [facility] [address] [place], [place] [address] [address] [place], [address], 10/08/2014 19:12:23 10/09/19 15 10/08/2014 compr ehens serge metab olic panel chloride 103 mmol/ L 100-11 5 Not Available [facility] [address] [place] [address] [address] [place], [address], 10/08/2014 19:12:23 10/09/19 15 10/08/2014 compr ehens serge metab olic panel carbon dioxide 29 mmol/ L 21-33 Not Available [facility] [address] [place] [address] [address] [place], [address], 10/08/2014 19:12:23 10/09/19 15 10/08/2014 compr ehens serge metab olic panel glucose 83 mg/dL 70-100 Not Available [facility] [address] [place] [address] [address] [place], [address], 10/08/2014 19:12:23 10/09/19 15 10/08/2014 compr ehens serge metab olic panel BUN 16 mg/dL 7-25 Not Available [facility] [address] [place] [address] [place], [address], 10/08/2014 19:12:23 10/09/19 15 10/08/2014 compr ehens serge metab olic panel creatinine 0.6 mg/dL 0.6-1. 3 Not Available [facility] [address] [facility] [address], [place], [address], 10/08/2014 19:12:23 10/09/19 15 10/08/2014 compr ehens serge metab olic panel BUN/creat ratio 26.7 calc 10.0-2 5.0 high Not Available [facility] [address] [facility] [address], [place], [address], 10/08/2014 19:12:23 10/09/19 15 10/08/2014 compr ehens serge metab olic panel calcium 9.3 mg/dL 8.8-10 .6 Not Available [facility] [address] [place], [address], 10/08/2014 19:12:23 10/09/19 15 10/08/2014 compr ehens serge metab olic panel total protein 6.7 g/dL 6.4-8. 9 Not Available [facility] [address] [place], [address], 10/08/2014 19:12:23 10/09/1910/08/2014 compr ehens serge metab olic panel albumin 4.0 g/dL 3.5-5. 7 Not Available [facility] [address] [facility] [address] [place], [address], 10/08/2014 19:12:23 10/09/19 15 10/08/2014 compr ehens serge metab olic panel globulin 2.7 g/dL 1.3-4. 0 Not Available [facility] [address] [place], [address], 10/08/2014 19:12:23 10/09/19 15 10/08/2014 compr ehens serge metab olic panel A/G ratio 1.5 calc 1.0-2. 8 Not Available [facility] [facility] [address] [place] [address] 41 [facility], [place], [address], 10/08/2014 19:12:23 10/09/19 15 10/08/2014 compr ehens serge metab olic panel alk. phosphatase 85 U/L 53-128 Not Available [facility] [address] [place] [address], [address], 10/08/2014 19:12:23 10/09/19 15 10/08/2014 compr ehens serge metab olic panel ALT (SGPT) 21 U/L 7-52 Not Available [facility] [address] [place] [address], [address], 10/08/2014 19:12:23 10/09/19 15 10/08/2014 compr ehens serge metab olic panel AST (SGOT) 26 U/L 13-39 Not Available [facility] [address] [place] [address], [address], 10/08/2014 19:12:23 10/09/19 15 10/08/2014 compr ehens serge metab olic panel total bilirubin 0.40 mg/dL 0.30-1 .00 Not Available [facility] [address] [place] [address], [address], 10/08/2014 19:12:23 10/09/19 15 10/08/2014 compr ehens serge metab olic panel GFR >60.0 >=60.0 IF PATIE NT IS AFRIC AN AMERI CAN, MULTI PLY RESUL T BY 1.21 Not Available [facility] [address] [place] [address], [address], 10/08/2014 19:12:23 10/09/19 15 10/08/2014 lipid panel direc t LDL cholesterol 155 mg/dL 20-180 Not Available [facility] [address] [facility] [address] [place], [address], 10/08/2014 19:12:26 10/09/19 15 10/08/2014 lipid panel direc t LDL triglyceride s 94 mg/dL 30-150 Not Available [facility] [address] [facility] [address] [place], [address], 10/08/2014 19:12:26 10/09/19 15 10/08/2014 lipid panel direc t LDL HDL cholesterol 53 mg/dL 23-92 Not Available [facility] [address] [facility] [address] [place], [address], 10/08/2014 19:12:26 10/09/19 15 10/08/2014 lipid panel direc t LDL LDL direct 82 mg/dL 75-120 NEWLY MER[facility] ED ATPII I GUIDE LINES FOR [address]: HIGH RISK PATIE NTS < 100 MDERA TE TO LOW RISK < 130 Not Available [email or web address] [facility] [address] [facility] [address] [place], [address], 10/08/2014 19:12:26 10/09/19 15 10/08/2014 lipid panel direc t LDL VLDL cholesterol 19 calc Not Available [facility] [address] [facility] [address] [place], [address], 10/08/2014 19:12:26 10/09/19 15 10/08/2014 lipid panel direc t LDL HDL risk factor 2.9 calc RISK FACTO R MALE FEMAL E 1/2 AVG RISK 3.4 3.3 AVG RISK 5.0 4.0 2X AVG RISK 9.6 7.1 3X AVG RISK 24.0 11.0 Not Available [facility] [address] [facility] [address] [place], [address], 10/08/2014 19:12:26 10/09/19 15 10/10/2014 urina lysis compl ete color YELLOW yellow Not Available [facility] [address] [place], [place] [address]y [address] [facility], [place], [address], 10/10/2014 05:01:59 10/09/19 15 10/10/2014 urina lysis compl ete appearance CLOUDY clear Not Available [facility] [address] [place], [place] [address]y [address] [place], [address], 10/10/2014 05:01:59 10/09/19 15 10/10/2014 urina lysis compl ete specific gravity 1.006 1.001- 1.035 Not Available [facility] [address] [place] [address] [address] [place], [address], 10/10/2014 05:01:59 10/09/19 15 10/10/2014 urina lysis compl ete pH 6.5 5.0-8. 0 Not Available [facility] [address] [place] [address] [address] [place], [address], 10/10/2014 05:01:59 10/09/19 15 10/10/2014 urina lysis compl ete glucose NEGATI VE negati ve Not Available [facility] [address] [place] [address] [address] [place], [address], 10/10/2014 05:01:59 10/09/19 15 10/10/2014 urina lysis compl ete bilirubin NEGATI VE negati ve Not Available [facility] [address] [place] [address] [address] [place], [address], 10/10/2014 05:01:59 10/09/19 15 10/10/2014 urina lysis compl ete ketones NEGATI VE negati ve Not Available [facility] [address] [place], [place] [address] [address] [place], [address], 10/10/2014 05:01:59 10/09/19 15 10/10/2014 urina lysis compl ete occult blood NEGATI VE negati ve Not Available [facility] [facility] [address], [place], [address], 10/10/2014 05:01:59 10/09/19 15 10/10/2014 urina lysis compl ete protein NEGATI VE negati ve Not Available [facility] [address] [facility] [address], [place], [address], 10/10/2014 05:01:59 10/09/19 15 10/10/2014 urina lysis compl ete nitrite NEGATI VE negati ve Not Available [facility] [address] [place], [place] [address] [address] [place], [address], 10/10/2014 05:01:59 10/09/19 15 10/10/2014 urina lysis compl ete leukocyte esterase 3+ negati ve Not Available [facility] [address] [place], [place] [address] [address] [place], [address], 10/10/2014 05:01:59 10/09/19 15 10/10/2014 urina lysis compl ete WBC 20-40 /hpf < or = 5 Not Available [facility] [address] [place], [place] [address] [address] [place], [address], 10/10/2014 05:01:59 10/09/19 15 10/10/2014 urina lysis compl ete RBC NONE SEEN /hpf < or = 2 Not Available [facility] [address] [place], [address], 10/10/2014 05:01:59 10/09/19 15 10/10/2014 urina lysis compl ete squamous epithelial cells 6-10 /hpf < or = 5 Not Available [facility] [address] [place] [address] [address] [place], [address], 10/10/2014 05:01:59 10/09/19 15 10/10/2014 urina lysis compl ete bacteria NONE SEEN /hpf none seen Not Available [facility] [address] [place] [address], [address], 10/10/2014 05:01:59 10/09/19 15 10/10/2014 urina lysis compl ete hyaline cast NONE SEEN /lpf none seen Not Available [facility] [address] [place] [address], [address], 10/10/2014 05:01:59 10/09/19 15 10/10/2014 cultu re, urine culture, urine, routine SEE NOTE CULTU RE, URINE , ROUTI NE MICRO NUMBE R: [id number] TEST STATU S: FINAL SPECI MEN SOURC E: URINE SPECI MEN QUALI TY: ADEQU ATE RESUL T: No Growt h Not Available [facility] [address] [place] [address], [address], 10/10/2014 05:02:00 10/09/19 15 10/08/2014 venip unctu re 1 venipuncture CHARGE Not Available [facility] [address] [place] [address], [address], 10/08/2014 08:56:59 12/14/19 19 12/14/2018 cultu re, urine culture, urine, routine SEE NOTE CULTU RE, URINE , ROUTI NE MICRO NUMBE R: [id number] TEST STATU S: FINAL SPECI MEN SOURC E: URINE SPECI MEN QUALI TY: ADEQU ATE RESUL T: No Growt h Not Available [facility] [address] [place] [address], [address], 12/14/2018 23:08:23 07/27/19 15 07/26/2014 abdom en compl ete ABDOMI NAL ULTRAS OUND Histor y: Abdomi nal pain. Compar mikala: None. Techni que: Abdomi nal ultras ound exam was obtain ed in comple te assess ment with color- flow Ismael sterling. Findin gs: In the liver, there is a small hypere choic focus in the right lobe measur ing 8 x 7 mm, most likely a shelby ioma, but clinic al follow up recomm ended. If indica callie, CT with IV contra st or MRI could be used. By Ismael sterling, this did not appear distin ctly vascul ar, but shelby iomas are diffic ult to evalua te the vascul arity by Ismael sterling. The gallbl adder is unrema rkable . The spleen and pancre as are unreve aling as visual ized. The kidney s are normal in size withou t stone, mass or hydron ephros is. The aorta and inferi or vena cava are unrema rkable . Impres nan: 1. Small hypere choic focus in the right lobe of the liver, most likely a small shelby ioma, but clinic al follow up recomm ended as descri bed. 2. Otherw ise negati ve abdomi nal ultras ound exam. Thank you for this referr al. Electr onical ly signed Readin g Radiol ogist: Kendal Flores MD [facility] [employer], [address], 06/12/2015 04:07:15 08/02/19 15 08/02/2014 CT, abdom en and pelvi s No observ ation record ed. [facility] (Emergency Room) [address] [place] [address], [address], 10/03/2014 13:39:36 08/05/19 15 07/26/2014 abdom en compl ete The common bile duct measur es .3 cm Thank you Electr onical ly signed Eronin Radiol ogist: Kendal Flores MD [facility] [employer], [address], 06/12/2015 04:07:20 12/06/19 19 12/01/2018 samanta wade strip , EKG* No observ ation record ed. [email or web address] [address], [place], [address], 12/12/2018 11:14:27 Result Notes None recorded. Problems Name Problem SNOMED Code Status Onset Date Resolution Date Notes Provider Name and Address Organization Details Recorded Time Multiple sclerosi s 84970545 Active Isis Montoya MD [address], [place], [address] , [facility] Physician [facility], [facility] 5 13:50:52 Gastroes ophageal reflux disease 847134539 Active Not Available [facility] 3 07:02:22 Backache 085159839 Completed 10/03/2014 [facility]bil [facility] 5 13:27:37 Osteoart hritis 409034724 Completed 12/12/2018 JASON Oconnor [address], [place], [address] , [facility] Physician [facility], [facility] 9 11:24:32 Injury of neck 71048386 Completed 10/03/2014 [facility]arcía [facility], [facility] 5 13:27:37 Posttrau matic headache 81185691 Completed 10/03/2014 [facility], [facility] 5 13:27:37 Hypothyr oidism 98329296 Completed 10/03/2014 [facility], [facility] 5 13:27:37 Herpes simplex 56738141 Completed 10/03/2014 [facility], [facility] 5 13:27:37 Osteopor osis 31287590 Completed 12/12/2018 JASON Oconnor [address], [place], [address] , [facility] Physician [facility], [facility] 9 11:24:27 Disease of mouth 945310477 Completed 10/03/2014 [facility] 5 13:27:37 Urinary tract infectio us disease 38955394 Completed 12/12/2018 JASON Nolan [address], [place], [address] , [facility], [facility] 9 11:24:41 Increase d blood pressure 68269855 Completed 10/03/2014 [facility], [facility], [facility] 5 13:27:37 Abdomina l pain 98392701 Completed 10/03/2014 Sybil Varun null, [facility], [facility] 5 13:27:37 Lesion of liver 033632357 Completed 10/03/2014 Sy[facility], [facility], [facility] 5 13:27:37 Essentia l hyperten nan 77237382 Active Isis Montoya MD [address], [place], [address] , [facility], [facility] 5 13:50:52 Fatigue 80600774 Completed 12/12/2018 JASON Oconnor [address], [place], [address] , [facility], [facility] 9 11:24:17 Disorder of bone and articula r cartilag e 955650458 Completed 12/12/2018 JASON Oconnor [address], [place], [address] , [facility], [facility] 9 11:17:49 Vitamin B deficien cy 58855333 Completed 12/12/[address], [place], [address] , [facility], [facility] 9 11:24:29 Disorder of thyroid gland 47780518 Completed 12/12/[address], [place], [address] , [facility], [facility] 9 11:24:35 Essentia l tremor 438631382 Active 2018 JASON Oconnor [address], [place], [address] , [facility] Physician [facility], [facility] 9 11:19:04 Chronic neck pain 22150193235 07 Completed 201812/12/2018 JASON Oconnor [address], [place], [address] , [facility], [facility] 9 11:19:48 Cannabis dependen ce 26277812 Active 2018 JASON Oconnor [address], [place], [address] , [facility] [email or web address] [facility], [facility] 9 11:19:45 Spastici ty 812729489 Active 2018 JASON Oconnor [address], [place], [address] , [facility] [email or web address] [facility], [facility] 9 11:24:13 Problem Notes None recorded. Procedures Surgical History Date Name Laterality Status Provider Name and Address Organization Details Recorded Time 07/05/19 18 Mammogram Screening completed Thomas Villela [facility], [facility] 12/12/2018 11:06:53 07/05/19 18 Dxa bone density axial completed Thomas Villela [facility], [facility] 12/12/2018 11:07:02 07/17/19 14 Quality Pain Screening No Pain completed Isis Montoya MD [address], [place], [address], [facility], [facility] 07/17/2013 09:00:18 07/17/19 14 Quality Functional Assessment completed Isis Montoya MD [address], [place], [address], [facility], [facility] 07/17/2013 09:00:18 07/17/19 14 Quality Medication Reviewed and Updated completed Isis Montoya MD [address], [place], [address], [place] [facility], [facility] 07/17/2013 09:00:18 07/17/19 14 Quality (DM or HTN) BP Diastolic < 80 completed MD Shonda Saleh[address], [place], [address], [facility] Physician [facility], [facility] 07/17/2013 09:00:18 07/17/19 14 Medicare AWV Questionnaire completed MD [address], [place], [address], [facility] Physician [facility], [facility] 07/17/2013 09:42:08 07/17/19 14 Quality Tobacco Non- User completed MD [address], [place], [address], [facility] Physician [facility], [facility] 07/17/2013 09:00:19 07/17/19 14 Quality (DM or HTN ) BP Systolic < 130 completed MD Cecy [address], [place], [address], [facility], [facility] 07/17/2013 09:00:19 07/17/19 14 Quality Fall Risk Assessment Low Risk completed MD Cecy Sale[address], [place], [address], [facility] Physician [facility], [facility] 07/17/2013 09:00:19 07/17/19 14 Quality BMI with follow up completed MD [address], [place], [address], [facility] Physician [facility], [facility] 07/17/2013 09:00:19 07/17/19 14 Quality Advanced Care Planning completed MD [address], [place], [address], [facility] Physician [facility], [facility] 07/17/2013 09:00:19 Screening pap smear by phys completed Thomas Villela [facility], [facility] 12/12/2018 11:07:19 Colonoscopy completed MD [address], [place], [address], [facility], [facility] 07/17/2013 09:42:29 Imaging Results None recorded. Procedure Notes None recorded. Medical Equipment None Reported. Allergies Allergen ID Allergen Name Allergen Category Reaction Reaction Severity Criticality Documentation Date Start Date Code Code System Note Provider Name and Address Organization Details Recorded Time 764553 Bactrim medicatio n Not available Not available Not available 07/15/2013 59483 9 RxNorm [facility]ocelynn [facility] 4 13:27:52 50151 codeine medicatio n Not available Not available Not available 02/13/2013 2670 RxNorm JASON Norwood [address], [place], [address], [facility], [facility] 3 16:06:19 [address]394 hydrocodo ne Not available Not available Not available Not available 02/13/2013 5489 RxNorm JASON Norwood [address], [place], [address], [facility], [facility] 3 16:06:19 Medications Name Sig Start Date Stop Date Status Note LastModified by Organization Details LastModified Time drug name is not available active Not Available Not Available No t Available losartan 50 mg tablet TAKE 1 TABLET BY MOUTH EVERY DAY FOR 30 DAYS 12/12 completed Not Available Not Available Not Available amoxicillin 500 mg capsule Take 1 capsule 3 times a day by oral route. 2013 active Not Available Not Available Not Avai lable phenazopyri dine 200 mg tablet Take 1 tablet 3 times a day by oral route as needed for 2 days. 12/12 completed Not Available Not Available Not Available lisinopril 20 mg tablet Take 1 tablet every day by oral route. 2013 active Not Available Not Available Not Avai lable Maxalt 10 mg tablet Take 1 tablet every day by oral route as needed for migraine headache. may repeat in 2 hours, not to exceed 2 doses in 24 hours.. 12/12 completed Not Available Not Available Not Available Nexium 40 mg capsule,del ayed release TAKE 1 CAPSULE DAILY 2013 active Not Available Not Available Not Avai lable valacyclovi r 500 mg tablet Take 1 tablet(s) twice a day by oral route for 90 days. 12/12 completed Not Available Not Available Not Available ciprofloxac in 500 mg tablet active Not Available Not Available Not Available omeprazole 40 mg capsule,del ayed release Take 1 capsule every day by oral route for 90 days. active Not Available Not Available No t Available tramadol 50 mg tablet active Not Available Not Available No t Available triamcinolo ne acetonide 0.1 % topical cream 12/12 completed Not Available Not Available Not Available meclizine 25 mg tablet Take 1 tablet twice a day by oral route as needed for 15 days. 02/28 completed Not Available Not Available Not Available baclofen 10 mg tablet take 3 tablets by mouth daily active Not Available Not Available No t Available naproxen sodium 550 mg tablet 12/12 completed Not Available Not Available Not Available gabapentin 300 mg capsule Take 1 capsule twice a day by oral route. 12/12 completed Not Available Not Available Not Available mupirocin 2 % topical ointment 12/12 completed Not Available Not Available Not Available levofloxaci n 500 mg tablet active Not Available Not Available Not Available losartan 50 mg-hydrochl orothiazide 12.5 mg tablet Take 1 tablet every day by oral route. active Not Available Not Available No t Available Cipro 250 mg tablet Take 1 tablet every 12 hours by oral route for 7 days. 04/23 completed Not Available Not Available Not Available fluticasone propionate 50 mcg/actuati on nasal spray,suspe nsion 12/12 completed Not Available Not Available Not Available doxycycline hyclate 100 mg tablet 12/12 completed Not Available Not Available Not Available diazepam 5 mg tablet Take 1 tablet every day by oral route at bedtime. active Not Available Not Available No t Available amoxicillin 875 mg-potassiu m clavulanate 125 mg tablet active Not Available Not Available Not Available Restasis 0.05 % eye drops in a dropperette active Not Available Not Available Not Available Avonex 30 mcg/0.5 mL intramuscul ar syringe kit Week active Not Available Not Available Not Available topiramate 50 mg tablet 12/12 completed Not Available Not Available Not Available nitrofurant oin monohydrate /macrocryst als 100 mg capsule 12/12 completed Not Available Not Available Not Available Lyrica 50 mg capsule Take 1 capsule every day by oral route. active Not Available Not Available No t Available Avonex DR MORALES 12/12 completed Not Available Not Available Not Available Prevnar 13 (PF) 0.5 mL intramuscul ar syringe ADM 0.5ML IM UTD 12/12 completed Not Available Not Available Not Available Tecfidera 120 mg (14)-240 mg (46) capsule,del ayed release active Not Available Not Available Not Available Vitals Date Recorded Body height Respiratory rate Oxygen saturation Oxygen saturation in Arterial blood by Pulse oximetry Body weight Body temperature Body mass index (BMI) Heart rate Systolic blood pressure Diastolic blood pressure Provider Name and Address Organization Details Last Updated DateTime 5 157.48 cm 16 /min 98 % 98 % 79546.6 0648 g 97.9 [degF] 19 kg/m2 83 /min 104 mm[Hg] 68 mm[Hg] Sybil lincoln [facility], [facility] 5 13:32:05 Date Recorded Respiratory rate Body height Body mass index (BMI) Body weight Body temperature Heart rate Oxygen saturation Oxygen saturation in Arterial blood by Pulse oximetry Systolic blood pressure Diastolic blood pressure Provider Name and Address Organization Details Last Updated DateTime 9 16 /min 157.48 cm 18.1 kg/m2 81858.2 9 g 98.2 [degF] 80 /min 97 % 97 % 102 mm[Hg] 66 mm[Hg] Thomas Villela [facility] Physician [facility], [facility] 9 11:09:00 Date Recorded Systolic blood pressure Diastolic blood pressure Provider Name and Address Organization Details Last Updated DateTime 05/30/2014 128 mm[Hg] 84 mm[Hg] JASON Norwood [address] [facility] [address], [place], [address], [place] - [facility] Physician [facility], [facility] 05/30/2014 08:48:49 Date Recorded Oxygen saturation Oxygen saturation in Arterial blood by Pulse oximetry Body weight Body temperature Heart rate Body mass index (BMI) Body height Provider Name and Address Organization Details Last Updated DateTime 4 98 % 98 % 03847.8 2937 g 97.6 [degF] 80 /min 18.5 kg/m2 157.48 cm [facility] 4 08:28:49 Date Recorded Oxygen saturation Oxygen saturation in Arterial blood by Pulse oximetry Body weight Body temperature Heart rate Body mass index (BMI) Body height Systolic blood pressure Diastolic blood pressure Provider Name and Address Organization Details Last Updated DateTime 4 96 % 96 % 54502.2 37 g 97.6 [degF] 94 /min 18.3 kg/m2 157.48 cm 116 mm[Hg] 79 mm[Hg] Henrietta [facility], [facility] 4 15:18:27 Date Recorded Body height Respiratory rate Oxygen saturation Oxygen saturation in Arterial blood by Pulse oximetry Body weight Body temperature Body mass index (BMI) Heart rate Systolic blood pressure Diastolic blood pressure Provider Name and Address Organization Details Last Updated DateTime 4 157.48 cm 16 /min 98 % 98 % 86401.0 5226 g 98.6 [degF] 17.9 kg/m2 107 /min 102 mm[Hg] 68 mm[Hg] Sybil lincoln [facility], [facility] 4 13:33:38 Social History Question Answer Notes LastModified by Organizat ion Details LastModified Time Tobacco Smoking Status Never Smoker JASON Norwood [address], [address], [facility], [facility] 02/13/2013 16:06:19 How Much Tobacco Do You Chew? None Information not available 04/18/2014 Which Illicit Or Recreational Drugs Have You Used? None Information not available 04/18/2014 Alcohol Use 1-2 Per Month Information not available 02/13/2013 Year Quit Tobacco Use 0 [email or web address] Information not available 01/29/2014 Marital Status Informatio n not available 02/13/2013 What Was The Date Of Your Most Recent Tobacco Screening? 12/12/2018 Information not available 01/27/2019 How Much Tobacco Do You Smoke? No Information not available 04/18/2014 Sex: Unknown Functional Status Question Answer Note LastModified by Organizat ion Details LastModified Time What is your occupation? retired Information not available 04/18/2014 What is your exercise level? Occasional Information not available 02/13/2013 Mental Status None recorded. Family History Relationship Description Onset Age of this Age Resolved Age Notes LastModified by Organization Details LastModified Time Mother Coronary arterioscler osis ppoling Not available 2014 13:39:39 Notes:father bone cancer mot her with heart disease Medical History Condition Response Back pain Y Nerve Damage / Neuropathy Y GERD/Ulcer Y Urinary Problems Y Gynecological HistoryNo gynecological history recorded. Obstetrics History GPAL:G 0 P 0 0 0 0 Immunizations Vaccine Type Date Status Note Provider Nam e and Address Organization Details Recorded Time Pneumococcal conjugate PCV 13 7 completed Thomas pena [place] [facility] 12/12/2018 11:06:30 tetanus toxoid, adsorbed 3 completed Not Available [facility] 07/22/2019 02:19:36 Past Encounters Encounter ID Performer Location Encounter Start Date Encounter Closed Date Diagnosis/Indication Diagnosis SNOMED-CT Code Diagnosis ICD10 Code Diagnosis Note [id number] JASON Norwood Saurabh [facility] [address] [id number] 02/13/2013 15:51:42 02/14/2013 07:52:23 [id number] JASON Bear Saurabh [facility] [address] [id number] 02/24/2013 14:17:42 02/24/2013 17:21:30 [id number] JASON Bear Saurabh [facility] [address] [place] [id number] 07/06/2013 08:17:53 07/06/2013 08:37:27 Herpes simplex [id number] Isis Montoya MD [facility] [address] [place] [id number] 07/17/2013 08:52:26 07/17/2013 11:36:30 Adult health examination [id number] Medicare Annual Wellness Visit done today. Screening mammography 37691050 Osteoporosis 92880748 Screening for malignant neoplasm of cervix 609010387 [id number] [facility] [address] [id number] 01/29/2014 08:40:08 01/29/2014 09:27:32 Polyarthropathy 97019764 Backache 702936905 Multiple sclerosis 24752928 Neuropathy 687803926 Fatigue 04369490 Hyperlipidemia 29105349 Impaired f asting glycemia 417204297 Disorder o f bone and articular cartilage 107986728 Vitamin B deficiency 34626780 Disorder o f thyroid gland 24350687 Urinary tr act infectious disease 08431213 [id number] [facility]ASON [facility] [address] [id number] 04/16/2014 11:07:30 04/16/2014 12:02:29 Urinary tract infectious disease 43353378 New problem, minor- urinalysis in the office appears positive. Urine culture sent. Begin antibiotic . Use, dose, and adverse effects of medication reviewed. Instructed to keep hydrated/ drink plenty of water. Proper hygeine discussed. Return if symptoms do not improve with antibiotic or with any other concerns. Increased blood pressure 90907812 recheck- 168/98- asymptomat ic.most likely R/T pain. BP log given. AHA guidelines discussed. monitor BP, record and bring to next appt. Go to ER with symptoms. [id number] JASON [facility]wood [facility] [address] [id number] 04/18/2014 09:29:42 04/18/2014 10:17:58 Urinary tract infectious disease 30526390 history of interstiti al cystitis. Urine culture was negative Complete cipro with improvemen t of symptoms. Instructed to keep hydrated/ drink plenty of water. Proper hygeine discussed. discussed proper diet with interstiti al cystitis. Followup with urology at [facility] (patient known to them) Increased blood pressure 96267075 blood pressure 136/86. she is asymptomat ic BP log given. AHA guidelines discussed. monitor BP, record and bring to next appt.in 1 month. Go to ER with symptoms. [id number] [facility] [address] [id number] 04/24/2014 09:31:16 04/24/2014 10:05:54 Urinary tract infectious disease 66105656 Culture negative. Hypertensive disorder 73933786 Continue Lisinopril . Get records from urgent care. EKG today normal. Chronic in terstitial cystitis 478363144 Continue follow up with Dr. Espinoza. Migraine 58464087 Contin ue follow up with Dr. Morales. Discussed relaxation techniques . [id number] JASON Norwood [facility] [address] [id number] 05/30/2014 08:17:17 05/30/2014 08:58:34 Hypertensive disorder 79063971 Stop lisinopril , possible reaction. Start losartan. Monitor BP, record and bring to next appt. Fever 497069347 etiolog y unknown- Urine appears negative. We will check CBC and CMP. [id number] JASON Norwood [facility] [address] [id number] 06/20/2014 15:09:58 06/20/2014 17:04:35 Acute sinusitis 98575272 Begin antibiotic as instructed . May use Afrin nasal spray x2-3 days or Neti pot for nasal congestion . Tylenol or advil for pain or fever unless contraindi cated. Mucinex as needed for congestion . Increase fluids, rest. Hygiene measures discussed. Use, dose, and adverse effects of medication discussed. Fever 452782322 recent CBC was normal. Rapid flu test is negative Increased blood pressure 37531600 blood pressure 116/79. Has been variable at home. She is asymptomat ic BP log given. AHA guidelines discussed. monitor BP, record and bring to next appt.in 1 month. Go to ER with symptoms. [id number] Isis Montoya MD [facility] [address] [facility] [address] [id number] 07/03/2014 13:02:36 07/03/2014 14:08:00 Increased blood pressure 31241922 Abdominal pain 70645941 Multiple sclerosis 94794479 [id number] Isis Montoya MD [facility] [address] [facility] [address] [place] [address] 10/03/2014 13:24:46 10/03/2014 14:19:14 Essential hypertension 02361076 Fatigue 66937232 Disorder o f bone and articular cartilage 813265187 Vitamin B deficiency 94068286 Disorder o f thyroid gland 06185659 Hyperlipid emia screening 727896971 Multiple sclerosis 13129753 Urinary tr act infectious disease 95306454 [id number] JASON Oconnor [facility] [address] [facility] [address] [place] [address] 12/12/2018 10:51:48 12/12/2018 11:42:24 Essential tremor 574847984 G25.0 chronic controlled , continue regimen as directed and monitor for disease progressio n Gastroesop hageal reflux disease 959452560 K21.9 chronic controlled , continue regimen as directed and monitor for disease progressio n Cannabis dependence 8500 5007 F12.20 medical patient, followed by Doctor in [place]. Multiple sclerosis 42783 007 G35 chronic controlled , continue regimen as directed and monitor for disease progressio n Spasticity 064263384 R25 .2 chronic controlled , continue regimen as directed and monitor for disease progressio n Urinary tr act infectious disease 76697449 N39.0 acute Health Concerns Section Related Observation LastModified by Organization Detai ls LastModified Time None Recorded Concern Status LastModified by Organization Details LastModified Time None Recorded Advance Directives Directive None Recorded Payers Insurance Date Sequence Insurance Name Policy Number Policy Savage Covered Member ID Savage Member ID Guarantor Name 01/31/2019 2 [facility] [id number] Lyly Zarateh [id number] Lyly Be Kristian 01/31/2019 1 [place] Lyly Zarateh [id number] Lyly Zarateh Notes Date Note Type Note Provider Name and Address Organization Details Recorded Time 07/03/2014 text/html variable blood p ressure -- avoiding salt. no stimulants. Isis Montoya MD [address] [facility] [address], [place], [address], [facility], [facility] 07/05/2014 21:15:55 10/03/2014 text/html sold herlinda sarah back to [place]. taking care of parents and family there. Isis Montoya MD [address], [place], [address], [facility] 10/07/2014 21:22:19 12/12/2018 text/html Establishing Car e for Chronic ConditionsReported bypatient.Reason for visit:establishing care Diagnosis:GERD; HTN; Tremors, MS, cannabis dependence Current status:unknown control Current control and compliance:usually compliant with regimen; exercising regularly Current symptoms/concerns:none stated Actions due to side effects:continued Rx Result of action:no change in side effectsFollow upReported bypatient.Reason for visit:follow-up after emergency room visit Severity:better Current status:well controlled/stable Current control and compliance:compliant with regimen Current symptoms/concerns:none stated Actions due to side effects:continued Rx Result of action:no change in side effects Labs/EKG reviewed:all recent labsNotes:treated for uti and sinusitis JASON Oconnor [address], [place], [address], [facility] [email or web address] Physician [employer] 12/12/2018 12:44:41 OBGyn Episode No OBEpisode recorded.
--- OUTSIDE RECORDS SUMMARY | 2024-12-18 15:19 | XMS_ITS | Clinical Summary ---
Author Organization [facility] [facility] Address [address] [place] [address] Phone Care Team Providers Care Machine Operators Name Role Phone Paul Brooks CLINICAL RESOURCE MANAGER Unavailable [phone] Dilip Robledo MD Primary Care Provider [phone] Allergies Active Allergy Reactions Criticality Noted Date [...] 7 days 1 kit 5 5 Active Hospital, Clinic, or Other Facility Administered Medication Ordered Dose Route Frequency Start Date End Date Status onabotulinumtoxin A (BOTOX) injection 200 UnitsIndications:Spa sticity 200 Units IM Once for Clinic-Administer ed Medication 01/10/2025 01/09/2026 Active Active Problems Problem Noted Date Diagnosed Date Vitamin D deficiency 11/16/2017 Abnormal gait 07/08/2015 Multiple sclerosis 10/12/2006 Encounters Date Type Department Care Team Description 12/13/2024 1:00 PM CDT Office Visit [facility] Movement Disorders [address] [facility] Advanced Medicine 6th [place] [address] [place] [address] Pato Saucedo MD Multiple sclerosis (HCC) (Primary Dx); Spasticity; Abnormal gait 11/16/2024 Telephone [facility] Scheduling [address] [place] [address] Pato Saucedo MD Scheduling Appointments from Last 3 Months Immunizations Immunization Administration [...] 01/02/2021 Surgical History Surgery Date Site/Laterality Comments PA LIG/TRNSXJ FLP TUBE ABDL/ VAG APPR UNI/BI [...] Date Smoking Tobacco: Former Tobacco Cessation:Counseling Given: No Comments Unknown Sex and Gender Information Value Date Recorded Sex Assigned at Not on file 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 Gender Identity Not on file Sexual Orientation Not on file Obstetrics History Last Filed Vital Signs Vital Sign Reading Time Taken Comments Blood Pressure 140/80 12/13/2024 12:43 PM CDT Pulse 68 12/13/2024 12:43 PM CDT Temperature 36.7 C (98 F) 01/27/2022 10:10 AM CDT Respiratory Rate - - Oxygen Saturation - - Inhaled Oxygen Concentration - - Weight 44.3 kg (97 lb 9.6 oz) 12/13/2024 12:43 P M CDT Height 157.5 cm (5' 2) 12/13/2024 12:43 PM CDT Body Mass Index 17.85 12/13/2024 12:43 PM CDT Plan of Treatment Health Maintenance Due Date Last Done Comments Breast Cancer Screening-Mammogram 1955 Colon Cancer Screening-Colonoscopy 1955 Depression Screening 1956 Fall Risk Assessment 1956 Hepatitis C Screening 1956 Hepatitis B Screening 1974 Osteoporosis Screening-Bone Density Scan 07/05/2019 07/05/2017, 07/04/2017 Well Visit 65+ 2021 Covid-19 Vaccine (2023-2 5 season) 2024 02/20/2021, 08/31/2020, 08/09/2020 Pneumococcal vaccine 65+ (3 of 3 - PCV20 or PCV21) 04/27/2024 04/27/2019, 04/20/2018, 04/19/2018, Additional history exists Influenza Vaccine (Season Ended) 2025 04/21/2022, 04/02/2020, 04/13/2019, Additional history exists DTaP/Tdap/Td Vaccine (2 - Td or Tdap) 12/05/2026 12/05/2016, 02/24/2013, 02/24/2013 Zoster Vaccine Completed 03/17/2021, 01/02/2021 Medical Devices Implanted Type Area Auricular Acupuncturist Device Identifier Shelf Expiration Date Model / Serial / Lot Cervical Fusion Spine Cervical Insurance U[employer] MEDICARE ADVANTAGE MEDICARE [facility] MEDICARE ADVANTAGE [facility] MEDICARE ADVANTAGE Care Teams Machine Operators Relationship Specialty Start Date End Date Dilip Robledo MD [address] [place] [address] PCP - General Family Practice 08/15/24 Paul Brooks, CLINICAL RESOURCE MANAGER [address] [facility] [address] [facility] [address] [place] [address] Nurse Practitioner 08/04/23
--- OUTSIDE RECORDS SUMMARY | 2024-12-18 15:19 | XMS_ITS | Clinical Summary ---
Author Organization [facility] Address [address] [place] [address] Care Team Providers Care Engineering Director Name Role Phone Lm Forbes MD Primary Care Provider [phone] Source Comments [facility],non-owned Affiliates and Associated Physician Practices is amultiple site organization consisting of ambulatory clinics and hospital sitesin [place], [place], [place] and [place]. This disclosure is being madepursuant to the Care Everywhere program and may not contain all information available regarding this patient. Last updated 18.[facility] [employer] Allergies Active Allergy Reactions Criticality Noted Date Comments Codeine Shortness of Breath,Swelling High 018 Hydrocodone Shortness of Breath,Swelling High 2017 Medications * Be aware that medications may not be up to date on this document. Alwaysverify current medications with the patient. Interferon Beta-1a (AVONEX IM) Active gabapentin (NEURONTIN) [...] by mouth 2 times daily Active Immunizations Immunization Administration Dates Next Due iNFLUENZA VACCINE, RECOM-JONES, QUADR. (FLUBLOCK QUADRIVALENT; 18Y+) (RIV4) 04/12/2018 Social History Tobacco Use Types Packs/Day Years Used Date Smoking Tobacco: Never Assessed Comments Unknown Sex and Gender Information Value Date Recorded Sex Assigned at Not on file Legal Sex Female 8:54 AM CDT Gender Identity Not on file Sexual Orientation Not on file Last Filed Vital Signs Vital Sign Reading Time Taken Comments Blood Pressure - - Pulse - - Temperature - - Respiratory Rate - - Oxygen Saturation - - Inhaled Oxygen Concentration - - Weight 47.6 kg (105 lb) 12/24/2017 8:24 AM CDT Height 158.8 cm (5' 2.5) 12/24/2017 8:24 AM CDT Body Mass Index [...] SCREENING 1956 LIPID TESTING 1956 MAMMOGRAM 1956 HEPATITIS C SCREENING 04/30/1974 DTAP/TDAP/TD VACCINES (1 - Tdap) 1975 PNEUMOCOCCAL VACCINE 50+ (1 of 1 - PCV) 2006 ZOSTER VACCINE (1 of 2) 2006 COVID-19 VACCINE ( - 2023-2 5 season) 2024 DEPRESSION SCREENING 07/05/2024 INFLUENZA VACCINE (Season Ended) 2025 04/12/20 18 Respiratory Syncytial Virus (RSV) Vaccine Pt: or [...] to complete this topic MENINGOCOCCAL (Group B) VACC INE SHARED DECISION-MAKING Aged Out No longer eligibl e based on patient's age to complete this topic MENINGOCOCCAL GROUPS A/C/Y/W VACCINE Aged Out No longer eligible b ased on patient's age to complete this topic Insurance MEDICARE [facility] MEDICARE MEDICARE Care Teams Engineering Director Relationship Specialty Start Date End Date Lm Forbes MD [address] [place] [address] PCP - General Internal Medicine 11/25/16
--- OUTSIDE RECORDS SUMMARY | 2024-12-18 15:19 | XMS_ITS | Referral Summary ---
Author Organization [facility] [employer] [facility] Address [address] [place] [address] Phone Care Team Providers Care Financial Compliance Examiner Name Role Phone Paul Brooks JAVA SCALA DEVELOPER Unavailable [phone] Dilip Robledo MD Primary Care Provider [phone] Encounters Date Type Department Care Team Description 12/13/2024 1:00 PM CDT Office Visit [facility] [place] [facility] Movement Disorders [address] [facility] Advanced Medicine 6th [place] [address] [place] [address] Pato Saucedo MD Multiple sclerosis (HCC) (Primary Dx); Spasticity; Abnormal gait 11/16/2024 Telephone [facility] [place] [facility] Scheduling [address] [place] [address] Pato Saucedo MD Scheduling Appointments from Last 3 Months Allergies Active Allergy [...] on file 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 MEDICARE ADVANTAGE MEDICARE [facility] Fashion [facility] MEDICARE ADVANTAGE [facility] MEDICARE ADVANTAGE Care Teams Financial Compliance Examiner Relationship Specialty Start Date End Date Dilip Robledo MD [address] [place], [place] [id number] PCP - General Family Practice 08/15/24 Paul Brooks, JAVA SCALA DEVELOPER [address] [place], [place] [id number] Nurse Practitioner 08/04/23
--- OUTSIDE RECORDS SUMMARY | 2024-12-18 15:19 | XMS_ITS | Encounter Summary ---
Author Organization [facility] Address [address] [facility] [place] [address] Care Team Providers Care Accountant Bookkeeper Name Role Phone Lm Forbes MD Primary Care Provider [phone] Encounter Details Date Type Department Care Team (Late st Contact Info) Description 03/31/2018 Lab Requisition [facility] [address] [place] [address] Abhinav Menendez MD [address] [place] [address] Social History Tobacco Use Types [...] AM CDT) Case Report Dermatopathology Report Case: [id number] Authorizing Provider: Abhinav Menendez MD Collected: 03/30/2018 12:00 AM Pathologist: Threesa Buenrostro MD Received: 03/31/2018 11:55 AM Specimens: A) - Skin, left med sup calf B) - Skin, left mid med calf C) - Skin, above left med malleolus D) - Skin, right med distal calf 4:56 PM CDT DERMATOPATHOLOGY LABORATORY Final Diagnosis Specimen A. SKIN, [...] DERMATITIS (L30.8) (see microscopic description) 4:56 PM CDT DERMATOPATHOLOGY LABORATORY at [address]56 T Clinical History A-C: R/O SCC vs DSAP. D: R/O SCCIS, DSAP. 4:56 PM CDT DERMATOPATHOLOGY LABORATORY Gross Description Specimen A: Received is one formalin filled container labeled with the patient's name and designated left med sup calf. The specimen consists of a shave biopsy measuring [id number]. Jar 0. Specimen B: Received is one formalin filled container labeled with the patient's name and designated left mid med calf. The specimen consists of a shave biopsy measuring 7b5y7lb. Jar 0. Specimen C: Received is one formalin filled container labeled with the patient's name and designated above left med malleolus. The specimen consists of a shave biopsy measuring 2k5k2ks. Jar 0+. Specimen D: Received is one formalin filled container labeled with the patient's name and designated right med distal calf. The specimen consists of a shave biopsy measuring [id number]. Jar 0. 4:56 PM CDT DERMATOPATHOLOGY LABORATORY [...] were obtained and reviewed. 8 4:56 PM T DERMATOPATHOLOGY LABORATORY Disclaimer An external and internal positive and negative controls are appropriate for the histochemical, immunohistochemical and immunofluorescence stain(s) in this case (if any), except where stated explicitly. The performance characteristics of the stain(s) cited in this report were developed and its performance characteristic determined by the Dermatopathology Laboratory at [facility]. These tests need not be, and therefore are not, approved by the [place] Food and Drug Administration. The tests are used for clinical purposes. Billing Codes Specimen Charges Stain Charges 02374 29200 54435 68918 1 1 1 1 32097 44495 1 1 8 4:56 PM CDT DERMATOPATHOLOGY [...] PM CDT Abhinav Menendez MD LAB - PATHOLOGY/CYTOLOGY ORD ERABLES Final Result DERMATOPATHOLOGY LABORATORY [facility] - Department of Dermatology [address] [place] [address], 5th Floor Lab [address] [phone] documented in this encounter Visit Diagnoses Not on filedocumented in this encounter Care Teams Accountant Bookkeeper Relationship Specialty Start Date End Date Lm Forbes MD [address] [place] [address] PCP - General Internal Medicine 11/25/16 documented as of this encounter
--- OUTSIDE RECORDS SUMMARY | 2024-12-18 15:19 | XMS_ITS | Encounter Summary ---
Author Organization [facility] Address [address] [place] [address] Care Team Providers Care Community Placement Worker Name Role Phone Lm Forbes MD Primary Care Provider [phone] Encounter Details Date Type Department Care Team (Late st Contact Info) Description 05/24/2019 Lab Requisition [facility] DermPath Lab [address] [place] [address] Abhinav Menendez MD [address] [place] [address] Social History Tobacco Use Types [...] Comments DERMATOPATHOLOGY Routine 05/23/2019 12:0 0 AM MANAGER UTILIZATION MANAGEMENT documented in this encounter Results * DERMATOPATHOLOGY (05/23/2019 12:00 AM MANAGER UTILIZATION MANAGEMENT) Case Report Dermatopathology Report Case: [id number] Authorizing Provider: Abhinav Menendez MD Collected: 05/23/2019 12:00 AM Ordering Location: [facility] DermPath Lab Received: 05/24/2019 01:24 PM Pathologist: Rosalva Bustillo MD Specimens: A) - Skin, right lat lower leg B) - Skin, left med lower leg C) - Skin, left med pretibial leg D) - Skin, right post mid thigh 3:27 PM [facility] DERMATOPATHOLOGY LABORATORY Final Diagnosis Specimen A. SKIN, [...] CELL CARCINOMA, NODULAR TYPE (C44.712) 3:27 PM [facility] DERMATOPATHOLOGY LABORATORY at [address] [facility] Clinical History A-D: R/O SCC, BCC, Johnson's. 3:27 PM [facility] DERMATOPATHOLOGY LABORATORY Gross Description Specimen A: Received is one formalin filled container labeled with the patient's name and designated right lat lower leg. The specimen consists of a shave biopsy (2 pieces) measuring 37x45u5ct & 0h0h4rz. Jar 0. Specimen B: Received is one formalin filled container labeled with the patient's name and designated left med lower leg. The specimen consists of a shave biopsy measuring 09m69g1hb. Jar 0. Specimen C: Received is one formalin filled container labeled with the patient's name and designated left med pretibial leg. The specimen consists of a shave biopsy measuring 92r5u2le. Jar 0+. Specimen D: Received is one formalin filled container labeled with the patient's name and designated right post mid thigh. The specimen consists of a shave biopsy measuring 28w27k7fj. Jar 0. 9 3:27 PM [facility] DERMATOPATHOLOGY LABORATORY Microscopic Description Specimen [...] ratio and peripheral palisading. 9 3:27 PM [facility] DERMATOPATHOLOGY LABORATORY Disclaimer An external and internal positive and negative controls are appropriate for the histochemical, immunohistochemical and immunofluorescence stain(s) in this case (if any), except where stated explicitly. The performance characteristics of the stain(s) cited in this report were developed and its performance characteristic determined by the Dermatopathology Laboratory at [facility], directed by Dr. Cheryl Bustillo. These tests need not be, and therefore are not, approved by the [place] Food and Drug Administration. The tests are used for clinical purposes. Billing Codes Specimen Charges Stain Charges 06932 15705 37933 12773 1 1 1 1 85622 1 9 3:27 PM MANAGER UTILIZATION MANAGEMENT DERMATOPATHOLOGY LABORATORY Embedded Images 9 3:27 PM [facility] DERMATOPATHOLOGY LABORATORY Pathology/Cytology TISSUE SPECIMEN FROM SKIN / Unknown 05/23/2019 05/24/2019 1:24 PM MANAGER UTILIZATION MANAGEMENT Miscellaneous samples (specimen) TISSUE SPECIMEN FROM SKIN / Unknown 05/23/2019 05/24/2019 1:24 PM MANAGER UTILIZATION MANAGEMENT Miscellaneous samples (specimen) TISSUE SPECIMEN FROM SKIN / Unknown 05/23/2019 05/24/2019 1:24 PM MANAGER UTILIZATION MANAGEMENT Miscellaneous samples (specimen) TISSUE SPECIMEN FROM SKIN / Unknown 05/23/2019 05/24/2019 1:24 PM MANAGER UTILIZATION MANAGEMENT us Abhinav Menendez MD LAB - PATHOLOGY/CYTOLOGY ORD ERABLES Final Result DERMATOPATHOLOGY LABORATORY [facility] - Department of Dermatology [address] [place] [address], 5th Floor Lab [address] [phone] documented in this encounter Visit Diagnoses Not on filedocumented in this encounter Care Teams Community Placement Worker Relationship Specialty Start Date End Date Lm Forbes MD [address] [place] [address] PCP - General Internal Medicine 11/25/16 documented as of this encounter
--- OUTSIDE RECORDS SUMMARY | 2024-12-18 15:19 | XMS_ITS | Data Portability ---
Author Organization [place] [facility] [employer], Main Office Address [address] [place] [address] Care Team Providers Care Psychologist Military Personnel Name Role Phone RAN HUTCHINS Primary Care Provider OLESYA ORONA Neurologist Assessment No assessment recorded. Plan of Treatment Reminders Order Date Submit Date Provider Last Modified By Organization Details Last Modified Time Details Appointments None recorded. Lab None recorded. Referral None recorded. Procedures None recorded. Surgeries None recorded. Imaging CT, sinuses, w/o contrast - [employer]. PLEASE GIVE PATIENT A COPY OF DISK. THANKS! 2023 024 [email or web address] [facility], [address], [place], [address], 4 11:52:36 Medication Orders cefdinir 300 mg capsule 2023 024 Zigab[id number], [address] [facility], [place], [place], [phone], 4 16:19:48 Patient TargetsNo targets recorded. Patient Instructions Encounter Date Encounter Id Patient Instructions Last Modified By Organization Details Last Modified Time 06/15/2024 [id number] the patient will undergo septoplasty with balloon. Again she understands that her chronic left facial pain is unaffected by this procedure [email or web address] Not available 06/15/2024 11:33:05 Reason for Referral None Reported. Results Created Date Observation Date Name Description Value Unit Range Abnormal Flag Note LastModifiedBy Organization Detail LastModifiedTime 03/01/20 24 02/29/2024 CT, sinus es, w/o contr ast No observ ation record ed. [email or web address] [facility] [address], [place], [address], 03/03/2024 08:27:59 03/02/2002/29/2024 CT, sinus es, w/o contr ast No observ ation record ed. [email or web address] [facility] [address], [place], [address], 03/02/2024 11:53:15 Result Notes None recorded. Problems Name Problem SNOMED Code Status Onset Date Resolution Date Notes Provider Name and Address Organization Details Recorded Time Multiple sclerosis 47615660 Completed 202302/21/2024 LENCHO Pang, [place] [facility] [employer] 4 09:59:29 Chronic obstructi ve pulmonary disease 41949344 Completed 202302/21/2024 LENCHO Pang null, [employer] 4 10:00:02 Chronic sinusitis 32286802 Active 2023 Alicia Ordoñez RN null, [employer] 4 11:38:32 Chronic sinusitis 20908772 Active 2023 FREEMAN Weems [address] [facility], [place], [address], [employer] [facility] [employer] 4 11:47:20 Impacted cerumen in right ear 101015699972 9103 Active 2023 FREEMAN Weems [address] [facility], [place], [address], [employer] [facility] [employer] 4 11:47:49 Deviated nasal septum 887482251 Active 2023 FREEMAN Weems [address] [facility], [place], [address], [email or web address] 4 11:48:14 Postopera tive pain 998432051 Active 2024 Alicia Ordoñez RN null, [employer] [facility] 5 14:16:03 Problem Notes None recorded. Procedures Surgical History Date Name Laterality Status Provider Name and Address Organization Details Recorded Time 4 Cerumen Impaction completed FREEMAN Weems [address] [facility], [address], [place], [address], [facility] [employer] [facility] 02/24/2024 11:47:00 operation on facial joint completed LENCHO Pang [facility] [employer] [facility] 02/21/2024 09:56:36 nasal septoplasty completed Alicia Ordoñez RN [facility] [employer] [facility] 09/26/2024 08:42:16 Imaging Results None recorded. Procedure Notes None recorded. Medical Equipment None Reported. Allergies Allergen ID Allergen Name Allergen Category Reaction Reaction Severity Criticality Documentation Date Start Date Code Code System Note Provider Name and Address Organization Details Recorded Time 37832 codeine medicatio n swelling severe high 02/21/2024 2670 RxNorm Throa t swell s and close s, head swell s. LENCHO Pang, [facility] [employer] [facility] 4 09:40:38 86589 hydrocodo ne Not available swelling severe high 02/21/2024 5489 RxNorm Throa t swell s and close s, head swell s. [facility] [employer] [facility] 4 09:41:03 Medications Name Sig Start Date [...] Not Available Not Available No t Available Tylenol Extra Strength 500 mg tablet Take 2 tablets every 6 hours by oral route. 2024 active Not Available Not Available Not Avai lable zonisamid e 25 mg capsule TAKE 6 CAPSULES BY MOUTH EVERY DAY active Not Available Not Available No t [...] and Address Organization Details Last Updated DateTime 09/26/2024 157.48 cm 17.8 kg/m2 61875.18 g 97.4 [degF] Alicia Ordoñez RN [place] [employer] 09/26/2024 10:50:35 Date Recorded Body height Body mass index (BMI) Body weight Body temperature Provider Name and Address Organization Details Last Updated DateTime 02/24/2024 157.48 cm 17.6 kg/m2 12683.87 g 98.3 [degF] LENCHO Pang [facility] [employer] [facility] 02/24/2024 11:00:21 Date Recorded Body height Body mass index (BMI) Body weight Body temperature Provider Name and Address Organization Details Last Updated DateTime 06/15/2024 157.48 cm 17.6 kg/m2 39912.59 g 98.1 [degF] Alicia Ordoñez RN [facility] [employer] [facility] 06/15/2024 11:08:27 Social History Question Answer Notes LastModified by Organizat [employer] Details LastModified Time Tobacco Smoking Status Former Smoker LENCHO Pang null, [facility] [employer] [facility] 02/21/2024 09:55:45 When Did You Quit Smoking? 16+yearssinc elastcigaret te Information not available 02/21/2024 Sex: Unknown Functional Status Question Answer Note LastModified by [employer] Details LastModified Time What is your level of alcohol consumption? Occasional Information not available 02/21/2024 Mental Status None recorded. Family History Nothing Reported Notes:NO ENT Medical History Condition Response ENT Y LUNG DISEASE/DISORDER Y Gynecological HistoryNo gynecological history recorded. Obstetrics History GPAL:G 0 P 0 0 0 0 Past Encounters Encounter ID Performer Location Encounter Start Date Encounter Closed Date Diagnosis/Indication Diagnosis SNOMED-CT Code Diagnosis ICD10 Code Diagnosis Note [id number] FREEMAN Weems [facility] [place] [address] [place] [address] 02/24/2024 10:53:16 02/24/2024 14:17:00 Chronic sinusitis 54702621 J32.9 Impacted c erumen in right ear 9571803045 599540 H61.21 Partial cerumen removed from right canal Deviated nasal septum 12 7703703 J34.[address] results before considerin g to proceed surgically [id number] Juan F Mcdermott MD [facility] [place] [address] [place] [address] 06/15/2024 10:46:28 06/29/2024 10:39:56 Deviated nasal septum 316537176 J34.2 [id number] Juan F Mcdermott MD [facility] [place] [address] [place] [address] 09/26/2024 10:46:08 09/26/2024 11:08:58 Postoperative visit 249004677 Z48.89 09/18/2024 postoperat serge from a septoplast y. Advised continuing use of saline rinses as needed. Advised use of Flonase to aid in decreasing postoperat serge inflammati on to the left nasal cavity which will then decrease her pain and discomfort to the left maxillary sinus location. Follow up as needed. Health Concerns Section Related Observation LastModified by Organization Detai ls LastModified Time None Recorded Concern Status LastModified by Organization Details LastModified Time None Recorded Advance Directives Directive None Recorded Payers Insurance Date Sequence Insurance Name Policy Number Policy Savage Covered Member ID Savage Member ID Guarantor Name 09/23/2024 1 [facility] (MEDICARE REPLACEMENT/A DVANTAGE - PPO) [id number] Lyly oTwnsend [id number] Lyly Townsend Notes Date Note Type Note [...] had any further imaging done since then. Alicia Reyes, ELECTRIFIER OPERATOR [address] [facility], [facility] [address], [place], [address], [facility] [employer] 02/24/2024 13:49:28 06/15/2024 text/html this patient had a fall following TMJ surgery and fractured her nose. She had a CT scan which demonstrated normal sinuses but a left septal deviation. She has left facial pain from the TMJ surgery which he understands will not be affected by correction of the deviated septum Juan F Mcdermott MD [address] [facility], [facility] [address], [place], [address], [employer] [facility] 06/15/2024 11:33:23 09/26/2024 text/html This patient presents to the office for a postoperative visit from a septoplasty that was completed on 09/18/2024. She does note that she continues to experience some left facial pressure and tenderness and notes that she feels about the same with her similar symptoms that she had prior to surgery. She is blowing her nose and using the saline rinses as directed without difficulties. FREEMAN Weems [address], [facility] [address], [place], [address], [employer] 09/26/2024 11:08:31 OBGyn Episode No OBEpisode recorded.
== END 2024-12-18 14:09 | disposition home or self-care (01) ==
PROVIDERS: PCP Nurse Practitioner Family; Visit Provider Internal Medicine Endocrinology, Diabetes & Metabolism
DX: R79.89 Other specified abnormal findings of blood chemistry (principal)
CPT/HCPCS: 78014; A9516

== ENCOUNTER 2025-06-26 10:49 | Outpatient (CLI) | payer MEDICARE, SELFPAY ==
--- NOTE | ~2025-06-26 | DEXA_ITS ---
Bone Density Report Name: DAXA TABOR Age: 70 Sex: Female Ethnicity: White Date of : 1955 Indication: postmenopausal osteoporosis; monitoring treatment; parental hip fracture; prior fracture; Referring Provider: STEPHENIE SHELDON Study: Bone densitometry was performed. Exam Date: June 26, 2025 Accession number: [id number] Bone Density: Region BMD T-score Z-score Classification AP Spine(L1, L2, L3) 0.989 -0.3 1.7 Normal Femoral Neck (Left) 0.578 -2.4 -0.7 Osteopenia Total Hip (Left) 0.859 -0.7 0.8 Normal Femoral Neck (Right) 0.543 -2.8 -1.0 Osteoporosis Total Hip (Right) 0.728 -1.8 -0.3 Osteopenia Total Hip Mean 0.794 -1.3 0.3 Osteopenia World Health Organization criteria for BMD impression classify patients as: Normal (T-score at or above -1.0), Osteopenia (T-score between -1.0 and -2.5), or Osteoporosis (T-score at or below -2.5). 10-year Fracture Risk: FRAX not reported because: Some T-score for Spine Total or Hip Total or Femoral Neck at or below -2.5 Treated for osteoporosis Previous Exams: Region Exam Age BMD T-score BMD Change BMD Change Date g/cm2 vs Baseline vs Previous AP Spine (L1-L3) 06/26/2025 70 0.989 -0.3 0.022 (2.3%) 0.022 (2.3%) 06/21/2023 68 0.967 -0.5 Total Hip(Left) 06/26/2025 70 0.859 -0.7 0.211 (32.5%)* 0.211 (32.5%)* 06/21/2023 68 0.648 -2.4 Total Hip(Right) 06/26/2025 70 0.728 -1.8 0.110 (17.9%)* 0.110 (17.9%)* 06/21/2023 68 0.618 -2.7 *Denotes significance at 95% confidence level, LSC for AP Spine = 0.022 g/cm2, LSC for Total Hip = 0.027 g/cm2 Clinical Information Provided by Patient: Has had a low trauma fracture Parent has had a hip fracture Is being treated for osteoporosis Has used the following medications: Vitamin D, Calcium Patient maximum height was 62 Menopause Age: 53 Drinks caffeinated beverages Onset of menses at age 9 Number of children 0 Impression: The patient has established osteoporosis, based on the Right Femoral Neck T-score and the existence of a prior fracture. The patient has risk factors, including: parental hip fracture, previous fracture. No significant bone loss was observed. Discussion: PATIENT UNDER TREATMENT WITH NO SIGNIFICANT BMD LOSS SINCE LAST EXAM. In an untreated patient, BMD typically declines with age. A lack of decline or gain is usually a sign that treatment is efficacious and fracture risk is reduced. It is important to ask patients whether they are taking their medications and to encourage continued and appropriate compliance with their osteoporosis therapies to reduce fracture risk. It is also important to review their risk factors and encourage appropriate calcium and vitamin D intakes, exercise, fall prevention and other lifestyle measures. Follow-Up: Consider a repeat BMD and Vertebral Fracture Assessment (VFA) exam in 2 years or sooner if medically necessary, to reassess this patient's status. Reported by: MARIA DEL ROSARIO on 06/26/2025 11:49:00 AM. Reviewed, dictated and finalized at location A.
--- OUTSIDE RECORDS SUMMARY | 2025-06-26 11:21 | XMS_ITS | Encounter Summary ---
Author Organization [facility] Address [address] [facility] [place] [address] Care Team Providers Care Cardiology Manager Name Role Phone Lm Forbes MD Primary Care Provider [phone] Encounter Details Date Type Department Care Team (Late st Contact Info) Description 05/24/[address] [facility] DermPath Lab [address] [place] [address] Abhinav Menendez MD [address] [place] [address] Social History Tobacco Use Types [...] Comments DERMATOPATHOLOGY Routine 05/23/2019 12:0 0 AM KNIFE MACHINE OPERATOR documented in this encounter Results * DERMATOPATHOLOGY (05/23/2019 12:00 AM KNIFE MACHINE OPERATOR) Case Report Dermatopathology Report Case: [id number] Authorizing Provider: Abhinav Menendez MD Collected: 05/23/2019 12:00 AM Ordering Location: [facility] DermPath Lab Received: 05/24/2019 01:24 PM Pathologist: Rosalva Bustillo MD Specimens: A) - Skin, right lat lower leg B) - Skin, left med lower leg C) - Skin, left med pretibial leg D) - Skin, right post mid thigh 3:[address] [facility] DERMATOPATHOLOGY LABORATORY Final Diagnosis Specimen [...] CELL CARCINOMA, NODULAR TYPE (C44.712) 3:[address] [facility] DERMATOPATHOLOGY LABORATORY at [address] [facility] Clinical History A-D: R/O SCC, BCC, Johnson's. 3:[address] [facility] DERMATOPATHOLOGY LABORATORY Gross Description Specimen A: Received is one formalin filled container labeled with the patient's name and designated right lat lower leg. The specimen consists of a shave biopsy (2 pieces) measuring 64w55w6ne & 2i8j5al. Jar 0. Specimen B: Received is one formalin filled container labeled with the patient's name and designated left med lower leg. The specimen consists of a shave biopsy measuring 11v20j2hp. Jar 0. Specimen C: Received is one formalin filled container labeled with the patient's name and designated left med pretibial leg. The specimen consists of a shave biopsy measuring 47p4j7ig. Jar 0+. Specimen D: Received is one formalin filled container labeled with the patient's name and designated right post mid thigh. The specimen consists of a shave biopsy measuring 37o49x0ra. Jar 0. 9 3:[address] [facility] DERMATOPATHOLOGY LABORATORY Microscopic Description Specimen [...] ratio and peripheral palisading. 9 3:[address] [facility] DERMATOPATHOLOGY LABORATORY Disclaimer An external and internal positive and negative controls are appropriate for the histochemical, immunohistochemical and immunofluorescence stain(s) in this case (if any), except where stated explicitly. The performance characteristics of the stain(s) cited in this report were developed and its performance characteristic determined by the Dermatopathology Laboratory at [facility], directed by Dr. Cheryl Bustillo. These tests need not be, and therefore are not, approved by the [place] Food and Drug Administration. The tests are used for clinical purposes. Billing Codes Specimen Charges Stain Charges 03954 21635 65904 78481 1 1 1 1 26302 1 9 3:27 PM KNIFE MACHINE OPERATOR DERMATOPATHOLOGY LABORATORY Embedded Images 9 3:[address] [facility] DERMATOPATHOLOGY LABORATORY Pathology/Cytology TISSUE SPECIMEN FROM SKIN / Unknown 05/23/2019 05/24/2019 1:24 PM KNIFE MACHINE OPERATOR Miscellaneous samples (specimen) TISSUE SPECIMEN FROM SKIN / Unknown 05/23/2019 05/24/2019 1:24 PM KNIFE MACHINE OPERATOR Miscellaneous samples (specimen) TISSUE SPECIMEN FROM SKIN / Unknown 05/23/2019 05/24/2019 1:24 PM KNIFE MACHINE OPERATOR Miscellaneous samples (specimen) TISSUE SPECIMEN FROM SKIN / Unknown 05/23/2019 05/24/2019 1:24 PM KNIFE MACHINE OPERATOR us Abhinav Menendez MD LAB - PATHOLOGY/CYTOLOGY ORD ERABLES Final Result DERMATOPATHOLOGY LABORATORY [facility] - Department of Dermatology [address] [place] [address], 5th Floor Lab [address] [phone] documented in this encounter Visit Diagnoses Not on filedocumented in this encounter Care Teams Cardiology Manager Relationship Specialty Start Date End Date Lm Forbes MD [address] [place] [address] PCP - General Internal Medicine 11/25/16 documented as of this encounter
--- OUTSIDE RECORDS SUMMARY | 2025-06-26 11:21 | XMS_ITS | Clinical Summary ---
Author Organization [facility] [employer] Address [address] [place] [address] Care Team Providers Care Children'S Ministry Director Name Role Phone Lm Forbes MD Primary Care Provider [phone] Source Comments [facility],non-owned Affiliates and Associated Physician Practices is amultiple site organization consisting of ambulatory clinics and hospital sitesin [place], [place], [place] and [place]. This disclosure is being madepursuant to the Care Everywhere program and may not contain all information available regarding this patient. Last updated 18.[facility] [employer] Allergies Active Allergy Reactions Criticality Noted Date [...] 2006 ZOSTER VACCINE (1 of 2) 2006 DEPRESSION SCREENING 07/05/2024 COVID-19 VACCINE (1 - 2024-2 6 season) 2025 INFLUENZA VACCINE (#1) 2025 04/12/2018 Respiratory Syncytial Virus (RSV) Vaccine Pt: or [...] age to complete this topic Insurance MEDICARE [facility] MEDICARE MEDICARE Care Teams Children'S Ministry Director Relationship Specialty Start Date End Date Lm Forbes MD [address] [place] [address] PCP - General Internal Medicine 11/25/16
--- OUTSIDE RECORDS SUMMARY | 2025-06-26 11:21 | XMS_ITS | Encounter Summary ---
Author Organization [facility] Address [address] [place] [address] Care Team Providers Care Jig Boring Machine Operator For Metal Name Role Phone Lm Forbes MD Primary Care Provider [phone] Encounter Details Date Type Department Care Team (Late st Contact Info) Description 03/31/2018 Lab Requisition [facility] Care DermPath Lab [address] [place] [address] Abhinav Menendez MD [address] [place] [address] Social History Tobacco Use Types [...] AM CDT) Case Report Dermatopathology Report Case: [id number] Authorizing Provider: Abhinav Menendez MD Collected: 03/30/2018 [...] specimen consists of a shave biopsy measuring 66m0x5gp. Jar 0. Specimen B: Received is one formalin filled container labeled with the patient's name and designated left mid med calf. The specimen consists of a shave biopsy measuring 1l0i1uv. Jar 0. Specimen C: Received is one formalin filled container labeled with the patient's name and designated above left med malleolus. The specimen consists of a shave biopsy measuring 4a3j3fq. Jar 0+. Specimen D: Received is one formalin filled container labeled with the patient's name and designated right med distal calf. The specimen consists of a shave biopsy measuring 24i47s2kz. Jar 0. 4:56 PM CDT DERMATOPATHOLOGY LABORATORY [...] characteristic determined by the Dermatopathology Laboratory at [facility]. These tests need not be, and therefore are not, approved by the [place] Food and Drug Administration. The tests are used for clinical purposes. Billing Codes Specimen Charges Stain Charges 87954 12385 21291 25951 1 1 1 1 19750 66792 1 1 8 4:56 PM CDT DERMATOPATHOLOGY [...] [facility] - Department of Dermatology [address] [place] [address], 5th Floor Lab B [address] [phone] documented in this encounter Visit Diagnoses Not on filedocumented in this encounter Care Teams Jig Boring Machine Operator For Metal Relationship Specialty Start Date End Date Lm Forbes MD [address] [place] [address] PCP - General Internal Medicine 11/25/16 documented as of this encounter
--- OUTSIDE RECORDS SUMMARY | 2025-06-26 11:21 | XMS_ITS | Clinical Summary ---
Author Organization [facility] [employer] [facility] Address [address] [place] [address] Phone Care Team Providers Care Small Piece Cutter Name Role Phone Paul Brooks MEDICAL CODING AUDITOR Unavailable [phone] Dilip Robledo MD Primary Care Provider [phone] Allergies Active Allergy Reactions Criticality Noted Date Comments Codeine Shortness of breath High 11/23/2017 Hydrocodone Shortness of breath High 11/23/2017 Sulfa (Sulfonamide Antibiotics) Rash Medium 10/03 Trimethoprim Unknown Low 01/24/2024 Medications losartan (COZAAR) 50 mg tablet Take [...] tablet TK 1/2 T PO QD PRN 01/08/20 20 Active needle, disp, 25 gauge (BD PrecisionGlide) 25 gauge x 1 needle USE ONE NEEDLE ONCE A WEEK WITH AVONEX INJECTION 6 each 12 04/29/20 20 Active albuterol HFA (PROVENTIL HFA,VENTOLIN HFA,PROAIR HFA) 90 mcg/actuation inhaler INHALE 1 PUFF BY MOUTH EVERY 6 HOURS NEEDED FOR SHORTNESS OF BREATH OR WHEEZING 07/21/19 23 Active zonisamide (ZONEGRAN) 25 mg capsule Take 1 capsule (25 mg total) by mouth daily 6caps per day 05/20/20 23 Active baclofen (LIORESAL) 10 mg tablet Take 1 tablet (10 mg total) by mouth 4 (four) times a day 360 tablet 3 06/20/20 24 Active denosumab-bbdz (Jubbonti) 60 mg/mL syringe subcutaneous syringe Inject under the skin Active gabapentin (NEURONTIN) 300 mg capsule Take 1 capsule (300 mg total) by mouth every morning AND 2 capsules (600 mg total) nightly. 90 capsule 5 06/19/20 25 Active naproxen (ANAPROX DS) 550 mg tablet Take 1 Tablet prior to Avonex injection 30 tablet 2 07/19/19 24 025 Discontinued gabapentin (NEURONTIN) 300 mg capsule TAKE 1 CAPSULE BY MOUTH TWICE DAILY 180 capsule 3 06/11/20 24 025 Discontinued interferon beta-1a (Avonex) 30 mcg/0.5 mL injection Inject 0.5 mL (30 mcg total) into the muscle as instructed every 7 days 1 kit 5 07/20/19 25 025 Discontinued gabapentin (NEURONTIN) 300 mg capsule TAKE 1 CAPSULE BY MOUTH TWICE DAILY 180 capsule 3 05/28/20 25 025 Discontinued(R eoheraclioer) Hospital, Clinic, or Other Facility Administered Medication Ordered Dose Route Frequency Start Date End Date Status onabotulinumtoxin A (BOTOX) injection 200 UnitsIndications:Spa sticity 200 Units IM Once for Clinic-Administer ed Medication 04/10/2025 04/09/2026 Active Active Problems Problem Noted Date Diagnosed Date Vitamin D deficiency 11/16/2017 Abnormal gait 07/08/2015 Multiple sclerosis 10/12/2006 Encounters Date Type Department Care Team Description 06/19/2025 11:00 AM SENIOR AGRICULTURAL ASSISTANT Office [facility] [address] [place] [address] Mickey Turpin MD Relapsing remitting multiple sclerosis (Primary Dx); Spasticity [R25.2]; Abnormal gait 03/27/2025 11:21 AM CDT - 03/27/2025 11:59 PM CDT Hospital Encounter [facility] [place] [address] Multiple sclerosis (HCC) Discharge Disposition: Discharge to home or self care from Last 3 Months Immunizations Immunization Administration [...] 01/02/2021 Surgical History Surgery Date Site/Laterality Comments NE LIG/TRNSXJ FLP TUBE ABDL/ VAG APPR UNI/BI [...] on file Legal Sex Female 11:21 PM SENIOR AGRICULTURAL ASSISTANT Gender Identity Not on file Sexual Orientation Not on file Last Filed Vital Signs Vital Sign Reading Time Taken Comments Blood Pressure 142/87 06/19/2025 11:03 AM SENIOR AGRICULTURAL ASSISTANT Pulse 85 06/19/2025 11:03 AM SENIOR AGRICULTURAL ASSISTANT Temperature 36.7 C (98 F) 01/27/2022 10:10 AM CDT Respiratory Rate - - Oxygen Saturation - - Inhaled Oxygen Concentration - - Weight 44.7 kg (98 lb 9.6 oz) 06/19/2025 11:03 A M SENIOR AGRICULTURAL ASSISTANT Height 157.5 cm (5' 2) 06/19/2025 11:03 AM SENIOR AGRICULTURAL ASSISTANT Body Mass Index 18.03 06/19/2025 11:03 AM SENIOR AGRICULTURAL ASSISTANT Plan of Treatment Health Maintenance Due Date Last Done Comments Breast Cancer Screening-Mammogram 1955 Colon Cancer Screening-Colonoscopy 1955 Depression Screening 1955 Fall Risk Assessment 1955 Hepatitis C Screening 1955 Hepatitis B Screening 1974 Osteoporosis Screening-Bone Density Scan 07/05/2019 07/05/2017, 07/04/2017 Well Visit 65+ 2021 Pneumococcal vaccine 65+ (3 of 3 - PCV20 or PCV21) 04/27/2024 04/27/2019, 04/20/2018, 04/19/2018, Additional history exists Covid-19 Vaccine (4 - 2024-2 6 season) 2025 02/20/2021, 08/31/2020, 08/09/2020 Influenza Vaccine (#1) 2025 , 04/18/2021, 04/02/2020, Additional history exists DTaP/Tdap/Td Vaccine (2 - Td or Tdap) 12/05/2026 12/05/2016, 12/05/2016, 02/24/2013, Additional history exists Zoster Vaccine Completed 03/17/2021, 0707/2020, 12/03/2020 Medical Devices Implanted Type Area Data Deliverables Manager Device Identifier Shelf Expiration Date Model / Serial / Lot Cervical Fusion Spine Cervical Procedures Procedure Name Priority Date/Time Associated Diagnosis Comments MRI MS BRAIN 3T PROTOCOL W WO CONTRAST Schedule Routine, Read Routine (OP Routine) 03/27/2025 1:47 PM CDT Multiple sclerosis (HCC) from Last 3 Months Results * MRI MS Brain 3T Protocol W WO Contrast (03/27/2025 1:47 PM CDT) Anatomical Region Laterality Modality Head and Neck N/A Magnetic Resonan ce 03/27/2025 2:53 PM CDT Impressions 03/27/2025 3:58 PM CDT Multiple unchanged intracranial white matter lesions. New T2 Lesions: None Enhancing Lesions: None Other significant findings: Unchanged atrophy of the corpus callosum and findings related to chronic left optic neuritis as above. Dictated by: Medardo Earl M.D. The radiology attending physician has personally reviewed this study, and had reviewed and/or edited this written report and agrees with it. Electronically signed by: Fili James M.D. Narrative 03/27/2025 3:58 PM CDT EXAMINATION: Magnetic resonance imaging (MRI) of the brain and brainstem without and with contrast HISTORY: 69-year-old woman with history of multiple sclerosis. TECHNIQUE: Multiplanar multi-weighted MRI of the brain, brainstem was performed without and with intravenous contrast using the multiple sclerosis protocol, which includes high resolution 3D T1-weighted, FLAIR, and T2*-weighted gradient echo images. Scanner: [facility] Field Strength: 3T Contrast information: 8 mL Gadoterate Meglumine IV The post-contrast scan was performed approximately 5 minutes after IV contrast administration. COMPARISON: Multiple prior MRI of the brain, most recent dated 06/15/2023. FINDINGS: BRAIN: There are multiple foci of hyperintensity on FLAIR and T2-weighted images within the white matter compatible with demyelinating plaques of multiple sclerosis. This includes periventricular, callosal, cerebellar, cortical or juxtacortical, and brainstem lesions. Partially visualized upper cervical spinal cord lesions, unchanged. New Brain T2 Lesions: None T1 Hypointense Black Holes: Approximately 10, unchanged. Enhancing Brain Lesions: None T2/FLAIR Brandon of Disease: Severe, more than 30 typical lesions or large confluent lesions Parenchymal Volume Loss: Moderate Central Vein Sign: Majority of lesions Other Significant Findings: There is unchanged atrophy of the corpus callosum. There is asymmetrically increased FLAIR hyperintensity within the left intraorbital and canalicular optic nerve, compatible with chronic optic neuritis. The scalp and calvarium are normal. The superior sagittal sinus demonstrates normal venous flow. The corpus callosum is normal in shape and signal intensity. The posterior fossa is unremarkable. The pituitary and sella are normal. Multiple unchanged lesions within the upper cervical spinal cord with atrophy of the upper cervical spinal cord. Diffusion weighted images reveal no hyperintensities to suggest acute cerebral infarction. Unchanged chronic hemosiderin deposition within the right basal ganglia. Unchanged configuration of the ventricles with ex vacuo dilatation. The paranasal sinuses are normal. The visualized portions of the mastoids are unremarkable. Bilateral lens replacements. Normal flow voids are demonstrated in the carotid arteries and basilar artery. Procedure Note Fili James MD - 03/27/2025 EXAMINATION: Magnetic resonance imaging (MRI) of the brain and brainstem without and with contrast HISTORY: 69-year-old woman with history of multiple sclerosis. TECHNIQUE: Multiplanar multi-weighted MRI of the brain, brainstem was performed without and with intravenous contrast using the multiple sclerosis protocol, which includes high resolution 3D T1-weighted, FLAIR, and T2*-weighted gradient echo images. Scanner: [facility] Field Strength: 3T Contrast information: 8 mL Gadoterate Meglumine IV The post-contrast scan was performed approximately 5 minutes after IV contrast administration. COMPARISON: Multiple prior MRI of the brain, most recent dated 06/15/2023. FINDINGS: BRAIN: There are multiple foci of hyperintensity on FLAIR and T2-weighted images within the white matter compatible with demyelinating plaques of multiple sclerosis. This includes periventricular, callosal, cerebellar, cortical or juxtacortical, and brainstem lesions. Partially visualized upper cervical spinal cord lesions, unchanged. New Brain T2 Lesions: None T1 Hypointense Black Holes: Approximately 10, unchanged. Enhancing Brain Lesions: None T2/FLAIR Brandon of Disease: Severe, more than 30 typical lesions or large confluent lesions Parenchymal Volume Loss: Moderate Central Vein Sign: Majority of lesions Other Significant Findings: There is unchanged atrophy of the corpus callosum. There is asymmetrically increased FLAIR hyperintensity within the left intraorbital and canalicular optic nerve, compatible with chronic optic neuritis. The scalp and calvarium are normal. The superior sagittal sinus demonstrates normal venous flow. The corpus callosum is normal in shape and signal intensity. The posterior fossa is unremarkable. The pituitary and sella are normal. Multiple unchanged lesions within the upper cervical spinal cord with atrophy of the upper cervical spinal cord. Diffusion weighted images reveal no hyperintensities to suggest acute cerebral infarction. Unchanged chronic hemosiderin deposition within the right basal ganglia. Unchanged configuration of the ventricles with ex vacuo dilatation. The paranasal sinuses are normal. The visualized portions of the mastoids are unremarkable. Bilateral lens replacements. Normal flow voids are demonstrated in the carotid arteries and basilar artery. IMPRESSION: Multiple unchanged intracranial white matter lesions. New T2 Lesions: None Enhancing Lesions: None Other significant findings: Unchanged atrophy of the corpus callosum and findings related to chronic left optic neuritis as above. Dictated by: Medardo Earl M.D. The radiology attending physician has personally reviewed this study, and had reviewed and/or edited this written report and agrees with it. Electronically signed by: Fili James M.D. us Mickey Turpin MD IMG MRI PROCEDURES Final Result from Last 3 Months Insurance UHC MEDICARE ADVANTAGE [facility] MED[facility] Address: [address] [address] [place] [address] MEDICARE [facility] MEDICARE ADVANTAGE [facility] Address: [address] [address] [place] [address] [facility] MEDICARE ADVANTAGE [facility] MEDIC[facility] Address: [address] [address] [place] [address] Care Teams Small Piece Cutter Relationship Specialty Start Date End Date Dilip Robledo MD [address] [place] [address] PCP - General Family Practice 08/15/24 Paul Brooks NP [address] [place] [address] Nurse Practitioner 08/04/23
--- OUTSIDE RECORDS SUMMARY | 2025-06-26 11:21 | XMS_ITS | Data Portability ---
Author Organization [place] - [facility] [employer], Main Office Address [address] [place] [address] Care Team Providers Care Potato Chip Maker Name Role Phone RAN HUTCHINS Primary Care Provider [phone] OLESYA ORONA Neurologist Assessment No assessment recorded. Plan of Treatment Reminders Order Date Submit Date Provider Last Modified By Organization Details Last Modified Time Details Appointments None recorded. Lab None recorded. Referral None recorded. Procedures None recorded. Surgeries None recorded. Imaging CT, sinuses, w/o contrast - [facility] PLEASE GIVE PATIENT A COPY OF DISK. THANKS! 2023 024 [email or web address] [facility], [address] [address], [place], [address], 11:52:36 Medication Orders cefdinir 300 mg capsule 2023 024 [email or web address] [id number], [address] [facility], [place], [place], [id number], 16:19:48 Patient TargetsNo targets recorded. Patient Instructions Encounter Date Encounter Id Patient Instructions Last Modified By Organization Details Last Modified Time 06/15/2024 [id number] the patient will undergo septoplasty with balloon. Again she understands that her chronic left facial pain is unaffected by this procedure [email or web address] Not available 06/15/2024 11:33:05 Reason for Referral None Reported. Results Created Date Observation Date Name Description Value Unit Range Abnormal Flag Note LastModifiedBy Organization Detail LastModifiedTime 03/01/20 24 02/29/2024 CT, sinus es, w/o contr ast No observ ation record ed. [email or web address] [facility] [address], [place], [address], 03/03/2024 08:27:59 03/02/2002/29/2024 CT, sinus es, w/o contr ast No observ ation record ed. [email or web address] [facility] [address], [place], [address], 03/02/2024 11:53:15 Result Notes None recorded. Problems Name Problem SNOMED Code Status Onset Date Resolution Date Notes Provider Name and Address Organization Details Recorded Time Multiple sclerosis 69984796 Completed 202302/21/2024 LENCHO Pang, [employer] 09:59:29 Chronic obstructi ve pulmonary disease 67570732 Completed 202302/21/2024 LENCHO Pang null, [employer] 4 10:00:02 Chronic sinusitis 99905343 Active 2023 Alicia Ordoñez RN null, [employer] 4 11:38:32 Chronic sinusitis 35713072 Active 2023 FREEMAN Weems [address], [place], [address], [employer] 4 11:47:20 Impacted cerumen in right ear 025436541027 9103 Active 2023 FREEMAN Weems [address], [place], [address], [employer] 4 11:47:49 Deviated nasal septum 694966858 Active 2023 FREEMAN Weems [address], [place], [address], [employer] 4 11:48:14 Postopera tive pain 742131048 Active 2024 Alicia Ordoñez RN null, [employer] 5 14:16:03 Problem Notes None recorded. Procedures Surgical History Date Name Laterality Status Provider Name and Address Organization Details Recorded Time 4 Cerumen Impaction completed FREEMAN Weems [address], [place], [address], [facility] [employer] [facility] 02/24/2024 11:47:00 operation on facial joint completed LENCHO Pang [facility] [employer] [facility] 02/21/2024 09:56:36 nasal septoplasty completed Alicia Ordoñez RN [facility] [employer] [facility] 09/26/2024 08:42:16 Imaging Results None recorded. Procedure Notes None recorded. Medical Equipment None Reported. Allergies Allergen ID Allergen Name Allergen Category Reaction Reaction Severity Criticality Documentation Date Start Date Code Code System Note Provider Name and Address Organization Details Recorded Time 90381 codeine medicatio n swelling severe high 02/21/2024 2670 RxNorm Throa t swell s and close s, head swell s. [facility] [employer] [facility] 4 09:40:38 78962 hydrocodo ne Not available swelling severe high 02/21/2024 5489 RxNorm Throa t swell s and close s, head swell s. [facility] [employer] [facility] 4 09:41:03 Medications Name Sig [...] Updated DateTime 09/26/2024 157.48 cm 17.8 kg/m2 37849.18 g 97.4 [degF] Alicia Ordoñez RN [place] [facility] [employer] 09/26/2024 10:50:35 Date Recorded Body height Body mass index (BMI) Body weight Body temperature Provider Name and Address Organization Details Last Updated DateTime 02/24/2024 157.48 cm 17.6 kg/m2 03141.87 g 98.3 [degF] Kristen AguillonMITZI justiceCharissa [facility] [employer] 02/24/2024 11:00:21 Date Recorded Body height Body mass index (BMI) Body weight Body temperature Provider Name and Address Organization Details Last Updated DateTime 06/15/2024 157.48 cm 17.6 kg/m2 42654.59 g 98.1 [degF] Alicia Ordoñez RN [facility] [employer] 06/15/2024 11:08:27 Social History Question Answer Notes LastModified by Organizat [employer] Details LastModified Time Tobacco Smoking Status Former Smoker Kristen LENCHO Brown [facility] [employer] 02/21/2024 09:55:45 When Did You Quit Smoking? 16+yearssinc elastcigaret te Information not available 02/21/2024 Sex: Unknown Functional Status Question Answer Note LastModified by [employer] Details LastModified Time What is your level [...] Diagnosis SNOMED-CT Code Diagnosis ICD10 Code Diagnosis IMO Codes Diagnosis Note [id number] FREEMAN Weems [facility] [place] [address] [place] [address] 02/24/2024 10:53:16 02/24/2024 14:17:00 Chronic sinusitis 71113793 J32.9 Impacted c erumen in right ear 1820469882 294305 H61.21 Partial cerumen removed from right canal Deviated nasal septum 12 3386450 J34.[address] results before considerin g to proceed surgically [id number] Juan F Mcdermott MD [facility] [place] [address] [place] [address] 06/15/2024 10:46:28 06/29/2024 10:39:56 Deviated nasal septum 459002156 J34.2 [id number] Juan F Mcdermott MD [facility] [place] [address] [place] [address] 09/26/2024 10:46:08 09/26/2024 11:08:58 Postoperative visit [id number] Z48.89 09/18/2024 postoperat serge from a septoplast [...] Savage Member ID Guarantor Name 09/23/2024 1 [facility] (MEDICARE REPLACEMENT/A DVANTAGE - PPO) [id number] Lyly Townsend [id number] Lyly Townsend Notes Date Note Type Note Provider Name and Address Organization Details Recorded Time 02/24/2024 text/html Patient with a past medical history of COPD and MS who [...] further imaging done since then. Alicia Reyes, RETURNS PROCESSOR [address] [facility], [place], [address], [facility] [employer] 02/24/2024 13:49:28 06/15/2024 text/html this patient had a fall following TMJ surgery and fractured her nose. She had a CT scan which demonstrated normal sinuses but a left septal deviation. She has left facial pain from the TMJ surgery which he understands will not be affected by correction of the deviated septum Juan F Mcdermott MD [address], [address], [place], [address], [employer] [facility] 06/15/2024 11:33:23 09/26/2024 text/html This patient presents [...] directed without difficulties. FREEMAN Weems [address], [address], [place], [address], [employer] 09/26/2024 11:08:31 OBGyn Episode No OBEpisode recorded.
== END 2025-06-26 10:50 | disposition home or self-care (01) ==
LOC: ANHFOHIMG 10:50
PROVIDERS: PCP Nurse Practitioner Family; Visit Provider Nurse Practitioner Family
DX: M85.89 Other specified disorders of bone density and structure, multiple sites (principal); M81.0 Age-related osteoporosis without current pathological fracture; Z78.0 Asymptomatic menopausal state; Z13.820 Encounter for screening for osteoporosis; R63.6 Underweight
CPT/HCPCS: 77080